=== PATIENT | female | born 1945 | race Caucasian/White ===

== ENCOUNTER 2021-05-22 10:12 | Outpatient (REF) | payer MEDICARE, SELFPAY ==
[2021-05-22 12:54] LABS: Hematocrit 47.3 % (37-47); Hemoglobin 15.4 g/dl (12.0-16.0); Mean Corpuscular HGB Conc 32.6 g/dl (31.0-35.0); Mean Corpuscular Hemoglobin 29.8 pg (27.0-33.0); Mean Corpuscular Volume 91.5 fL (80-98); Platelet Count 330 X10*3/uL (160-400); Red Blood Count 5.17 X10*6/uL (4.20-5.50); Red Cell Distribution Width 12.4 % (11.0-16.0); White Blood Count 8.3 X10*3/uL (4.8-10.8)
[2021-05-22 13:13] LABS: Alanine Aminotransferase 8 U/L (0-31); Albumin Level 4.6 g/dL (3.5-5.0); Alkaline Phosphatase 54 U/L (39-117); Anion Gap 17 (12-20); Aspartate Amino Transferase 15 U/L (5-31); Bilirubin Total 0.5 mg/dL (0.0-1.0); Blood Urea Nitrogen 13 mg/dL (9-16); Calcium 10.3 mg/dL (8.4-10.2); Carbon Dioxide 27 mmol/L (22-29); Chloride 100 mmol/L (96-108); Cholesterol 260 mg/dL; Estimated Glomerular Filt Rate 43; Glucose Fasting 101 mg/dL (60-99); HDL Cholesterol 60 mg/dL; LDL Cholesterol Calculated 168 mg/dl; Potassium 5.8 mmol/L (3.3-5.1); Sodium 138 mmol/L (135-145); Total Protein 7.6 g/dL (6.5-8.0); Triglycerides 163 mg/dL
[2021-05-22 13:17] LABS: Valproate 57.2 mcg/mL (50.0-100.0)
== END 2021-05-22 10:13 | disposition home or self-care (01) ==
LOC: HO.MANLDS 10:12
PROVIDERS: PCP Internal Medicine; Visit Provider Internal Medicine
DX: I10 Essential (primary) hypertension (principal); R56.9 Unspecified convulsions; Z79.899 Other long term (current) drug therapy
CPT/HCPCS: 36415; 80053; 80061; 80164; 85027

== ENCOUNTER 2024-05-02 10:18 | Outpatient (REF) | payer MEDICARE, SELFPAY ==
[2024-05-02 13:14] LABS: MANUAL DIFF FLAG NO
[2024-05-02 13:24] LABS: Basophils Percent Auto 0.6 % (0-2); Eosinophils Absolute Auto 0.1 X10*3/uL (0.0-0.4); Eosinophils Percent Auto 0.9 % (0-4); Hematocrit 42.8 % (37.0-47.0); Hemoglobin 14.3 g/dl (12.0-16.0); Imm Gran Abs Auto 0.03 X10*3/uL (0.00-0.03); Imm Gran Pct Auto 0.5 % (0.0-0.4); Lymphocytes Absolute Auto 1.9 X10*3/uL (1.2-4.9); Lymphocytes Percent Auto 28.5 % (20-40); Mean Corpuscular HGB Conc 33.4 g/dl (31.0-35.0); Mean Corpuscular Volume 89.9 fL (80.0-98.0); Mean Platelet Volume 10.7 fL (9.4-12.3); Monocytes Absolute Auto 0.7 X10*3/uL (0.1-1.2); Monocytes Percent Auto 11.2 % (2-11); Neutrophils Absolute Auto 3.8 x10*3/uL (2.0-8.3); Neutrophils Percent Auto 58.3 % (45-73); Platelet Count 266 X10*3/uL (160-400); Red Blood Count 4.76 X10*6/uL (4.20-5.50); Red Cell Distribution Width 12.4 % (11.0-16.0); White Blood Count 6.6 X10*3/uL (4.8-10.8)
[2024-05-02 13:44] LABS: Alanine Aminotransferase 8 U/L (0-31); Albumin Level 4.2 g/dL (3.5-5.0); Alkaline Phosphatase 46 U/L (39-117); Anion Gap 12 (12-20); Aspartate Amino Transferase 19 U/L (5-31); Bilirubin Total 0.4 mg/dL (0.0-1.0); Blood Urea Nitrogen 16 mg/dL (9-16); Calcium 10.1 mg/dL (8.4-10.2); Carbon Dioxide 30 mmol/L (22-29); Chloride 100 mmol/L (96-108); Cholesterol 204 mg/dL (<200); Estimated Glomerular Filt Rate 43; Glucose Random 77 mg/dL (60-115); HDL Cholesterol 55 mg/dL (>40); LDL Cholesterol Calculated 121 mg/dL (<100); Potassium 5.1 mmol/L (3.3-5.1); Sodium 137 mmol/L (135-145); Total Protein 7.3 g/dL (6.5-8.0); Triglycerides 144 mg/dL (<150)
[2024-05-02 14:05] LABS: Vitamin D 25-OH Total 65.5 ng/mL (>30)
== END 2024-05-02 10:19 | disposition home or self-care (01) ==
LOC: HO.MANLDS 10:18
PROVIDERS: Visit Provider Internal Medicine
DX: I10 Essential (primary) hypertension (principal)
CPT/HCPCS: 36415; 80053; 80061; 82306; 85025

== ENCOUNTER 2024-11-14 07:28 | Outpatient (REF) | payer MEDICARE, SELFPAY ==
--- OUTSIDE RECORDS SUMMARY | 2024-11-14 07:31 | XMS_ITS | Data Portability ---
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) [facility] MODERATE MUST MEET 2 OUT OF 3 ELEMENTS: PROBLEMS, DATA OR RISK ELEMENT 1: PROBLEMS ADDRESSED 1 OR MORE CHRONIC ILLNESS WITH EXACERBATION OR 2 OR MORE STABLE CHRONIC ILLNESSES OR 1 UNDIAGNOSED NEW PROBLEM OR 1 ACUTE ILLNESS W/SYMPTOMS OR 1 ACUTE COMPLICATED INJURY ELEMENT 2: DATA MUST MEET 1 OF 3 CATEGORIES CATEGORY 1: REVIEW OF PRIOR EXTERNAL NOTES, REVIEW OF RESULTS, ORDERING OF EACH TEST, ASSESSMENT REQUIRING INDEPENDENT HISTORIAN OR CATEGORY 2: INDEPENDENT INTERPRETATION OF TESTS BY ANOTHER PHYSICIAN OR SPECIALIST OR CATEGORY 3: DISCUSSION OF MGT OR TEST INTERPRETATION W/EXTERNAL PHYSICIAN OR SPECIALIST ELEMENT 3: RISK RISK OF COMPLICATIONS AND/OR MORBIDITY OR MORTALITY OF PATIENT MANAGEMENT PROVIDER MUST THOROUGHLY DOCUMENT EACH ELEMENT THAT IS COVERED Not available 04/28/2023 15:41:10 11/09/2023 11/09/2023 [id number] [place] [id number] (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 TENDER) [facility]DM MODERATE MUST MEET 2 OUT OF 3 ELEMENTS: PROBLEMS, DATA OR RISK ELEMENT 1: PROBLEMS ADDRESSED 1 OR MORE CHRONIC ILLNESS WITH EXACERBATION OR 2 OR MORE STABLE CHRONIC ILLNESSES OR 1 UNDIAGNOSED NEW PROBLEM OR 1 ACUTE ILLNESS W/SYMPTOMS OR 1 ACUTE COMPLICATED INJURY ELEMENT 2: DATA MUST MEET 1 OF 3 CATEGORIES CATEGORY 1: REVIEW OF PRIOR EXTERNAL NOTES, REVIEW OF RESULTS, ORDERING OF EACH TEST, ASSESSMENT REQUIRING INDEPENDENT HISTORIAN OR CATEGORY 2: INDEPENDENT INTERPRETATION OF TESTS BY ANOTHER PHYSICIAN OR SPECIALIST OR CATEGORY 3: DISCUSSION OF MGT OR TEST INTERPRETATION W/EXTERNAL PHYSICIAN OR SPECIALIST ELEMENT 3: RISK RISK OF COMPLICATIONS AND/OR MORBIDITY OR MORTALITY OF PATIENT MANAGEMENT PROVIDER MUST THOROUGHLY DOCUMENT EACH ELEMENT THAT IS COVERED Not available 11/09/2023 11:03:30 05/02/2024 05/02/2024 [id number] [place] [id number] (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 TENDER) MDM MODERATE MUST MEET 2 OUT OF 3 ELEMENTS: PROBLEMS, DATA OR RISK ELEMENT 1: PROBLEMS ADDRESSED 1 OR MORE CHRONIC ILLNESS WITH EXACERBATION OR 2 OR MORE STABLE CHRONIC ILLNESSES OR 1 UNDIAGNOSED NEW PROBLEM OR 1 ACUTE ILLNESS W/SYMPTOMS OR 1 ACUTE COMPLICATED INJURY ELEMENT 2: DATA MUST MEET 1 OF 3 CATEGORIES CATEGORY 1: REVIEW OF PRIOR EXTERNAL NOTES, REVIEW OF RESULTS, ORDERING OF EACH TEST, ASSESSMENT REQUIRING INDEPENDENT HISTORIAN OR CATEGORY 2: INDEPENDENT INTERPRETATION OF TESTS BY ANOTHER PHYSICIAN OR SPECIALIST OR CATEGORY 3: DISCUSSION OF MGT OR TEST INTERPRETATION W/EXTERNAL PHYSICIAN OR SPECIALIST ELEMENT 3: RISK RISK OF COMPLICATIONS AND/OR MORBIDITY OR MORTALITY OF PATIENT MANAGEMENT PROVIDER MUST THOROUGHLY DOCUMENT EACH ELEMENT THAT IS COVERED Not available 05/02/2024 10:05:37 11/11/2024 11/11/2024 [id number] [place] [id number] (CIRCULATION TENDER) MDM HIGH MUST MEET 2 OUT OF 3 ELEMENTS: PROBLEMS, DATA OR RISK ELEMENT 1: PROBLEMS 1 OR MORE CHRONIC ILLNESS W/SEVERE EXACERBATION, PROGRESSION MAY REQUIRE HOSPITAL LEVEL CARE OR 1 ACUTE OR CHRONIC ILLNESS OR INJURY THAT POSES A THREAT TO LIFE OR BODILY FUNCTION ELEMENT 2: DATA: MUST MEET 2 OF 3 CATEGORIES CATEGORY 1 REVIEW OF PRIOR EXTERNAL NOTES REVIEW OF THE RESULTS ORDERING OF EACH TEST ASSESSMENT REQUIRING INDEPENDENT HISTORIAN(S) CATEGORY 2: INDEPENDENT INTERPRETATION OF TESTS BY ANOTHER PROVIDER/SPECIALI ST CATEGORY 3: DISCUSSION OF MGT OR TEST INTERPRETATION W/EXTERNAL PHYSICIAN/SPECIAL IST ELEMENT 3: RISK HIGH RISK OF MORBIDITY FROM ADDITIONAL DIAGNOSTIC TESTING OR TREATMENT PROVIDER MUST THOROUGHLY DOCUMENT EACH ELEMENT THAT IS COVERED The patient presented to their appointment today for multiple concerns requiring moderate to high-level decision making and took over 40-45 minutes for an adequate and appropriate history, exam, assessment and treatment plan. This appointment was done with an established patient. Not available 11/11/2024 09:14:50 Plan of Treatment Reminders Order Date Submit Date Provider Last Modified By Organization Details Last Modified Time Details Appointments FOLLOW UP 15 2024 09:00A M DR ALMAZAN Not available Not available Not available Lab valproic acid, free + total, serum 2024 025 [facility], [address] [place] [address], [place], [address], 11/11/2024 09:21:34 vitamin D, 25-hydrox y, total, serum 2023 024 [facility], [place], [address], 05/02/2024 10:11:08 CBC 2023 024 [facility], [place], [address], 05/02/2024 10:11:08 CMP, serum or plasma 2023 024 [facility], [place], [address], 05/03/2024 11:18:39 lipid panel, blood 2023 024 [facility], [place], [address], 05/02/2024 10:11:08 CMP, serum or plasma 2023 024 [facility], [place], [address], 11/09/2023 11:07:05 vitamin D, 25-hydrox y, total, serum 2023 024 [facility], [place], [address], 11/09/2023 11:07:05 lipid panel, blood 2023 024 [facility], [place], [address], 11/09/2023 11:07:05 CBC 2023 024 [facility], [place], [address], 11/09/2023 11:07:05 Referral None recorded. Procedures None recorded. Surgeries None recorded. Imaging XR, knee, 3 view - bilateral please 2023 024 [email or web address] 10 [facility], [address] [place] [address], [address], 05/17/2024 11:28:11 XR, lumbosacr al spine, 2 or 3 view 2022 023 DON[facility] Not available 07/21/2023 16:59:26 Medication Orders propranol ol ER 160 mg capsule,2 4 hr,extend ed release 2023 024 [id number], [address] [place], [place], [id number], 11/09/2023 11:06:15 oxycodone -acetamin ophen 5 mg-325 mg tablet 2022 023 [facility] #[id number], [address] [place], [place], [id number], 07/20/2023 12:03:49 prednison e 10 mg tablet 2022 023 [email or web address] [facility][id number], [address], [place], [id number], 11/09/2023 10:41:31 Patient TargetsNo targets recorded. Patient Instructions Encounter Date Encounter Id Patient Instructions Last Modified By Organization Details Last Modified Time 05/02/2024 [id number] learning about mood disorders Not available 05/02/2024 10:09:47 11/11/2024 [id number] learning about mood disorders Not available 11/11/2024 09:20:25 Reason for Referral None Reported. Results Created Date Observation Date Name Description Value Unit Range Abnormal Flag Note LastModifiedBy Organization Detail LastModifiedTime 07/21/20 23 07/21/2023 XR, lumbo sacra l spine , 2 or 3 view No observ ation record ed. [address], [address], 11/09/2023 11:03:52 Result Notes None recorded. Problems Name Problem SNOMED Code Status Onset Date Resolution Date Notes Provider Name and Address Organization Details Recorded Time Hyperten sive disorder 01646186 Active 2017 Not Available [facility] 2 12:34:32 Seizure 46137757 Active 2017 Not Available [facility] 2 12:34:32 Gastric volvulus 52227996 Active 2017 Not Available [facility] 2 12:34:32 History of total hysterec dolly 745656660 Active 2017 Not Available [facility] 2 12:34:32 Low back pain 425205894 Active 2017 Not Available [facility] 2 12:34:31 Tobacco dependen ce syndrome 58767599 Active 2017 Not Available [facility] 2 12:34:32 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 Not Available [facility] 2 12:34:32 Depressi ve disorder 61910803 Active 2020 Not Available [facility] 2 12:34:32 Acute bronchit is 97111155 Active 2022 RAHEEL KELSEY [address] [place], [address], [facility] 3 11:09:11 Cough 65756093 Active 2022 RAHEEL KELSEY [address] [place], [address], [facility] 3 11:09:34 Fever with chills 981314802 Active 2022 RAHEEL KELSEY [address] [place], [address], [facility] 3 11:09:43 Right upper quadrant pain 422654683 Active 2022 RAHEEL KELSEY [address] [place], [address], [facility] 3 10:23:45 Cholelit hiasis without obstruct ion 65508967 Active 2022 RAHEEL KELSEY [address] [place], [address], [facility] 3 13:35:58 Spasm of muscle of lower back 76614475990 787398 Active 2022 Emil Almazan, DO [address] [place] [address], [address], [facility] 3 22:49:59 Degenera tion of lumbar interver tebral disc 64215887 Active 2022 RAHEEL KELSEY [address] [place], [address], [facility] 3 09:00:50 [facility] hyperten deni 40411471 Active 2023 Emil Almazan DO [address] [place] [address], [address], [facility] 4 11:06:50 Pain of bilatera l knee joints 26650625828 4104 Active 2023 Emil Almazan, [address], [address], [facility] 4 10:02:57 Problem Notes None recorded. Procedures Surgical History Date Name Laterality Status Provider Name and Address Organization Details Recorded Time 7 Colonoscopy completed Opal Chavez [facility] 01/12/2019 09:48:09 Imaging Results Imaging Date Name Status LastModified by Organiz ation Details LastModified Time 07/21/2023 XR, lumbosacral spine, 2 or 3 view completed [facility] [address] [facility], [place], [address], 11/09/2023 11:03:52 Procedure Notes None recorded. Medical Equipment None Reported. Allergies Allergen ID Allergen Name Allergen Category Reaction Reaction Severity Criticality Documentation Date Start Date Code Code System Note Provider Name and Address Organization Details Recorded Time 2454 Substance with sulfonami de structure and antibacte rial mechanism of action (substanc e) medicatio n Not available Not available Not available 07/09/2018 19149 8003 SNOMED Opal patton [place] [facility] 8 08:44:17 Medications Name Sig Start Date Stop Date Status Note LastModified by Organization Details LastModified Time cyclobenzap rine 10 mg tablet Take 1 tablet 3 times a day by oral route for 10 days. 07/18 completed Not Available Not Available Not Available prednisone 10 mg tablet 40 mg x 2 days30 mg x 2 days20 mg x 2 days10 mg x 2 days 11/09 completed Not Available Not Available Not Available doxycycline hyclate 100 mg capsule TAKE 1 CAPSULE BY MOUTH TWICE DAILY FOR 10 DAYS 12/22 completed Not Available Not Available Not Available propranolol ER 160 mg capsule,24 hr,extended release TAKE 1 CAPSULE BY MOUTH DAILY active Not Available Not Available No t Available divalproex 250 mg tablet,nilda yed release TAKE 1 TABLET BY MOUTH TWICE DAILY FOR 7 DAYS 11/09 completed Not Available Not Available Not Available tizanidine 4 mg tablet TAKE 1 TABLET BY MOUTH EVERY 6 HOURS FOR 10 DAYS 11/09 completed Not Available Not Available Not Available benzonatate 200 mg capsule TAKE 1 CAPSULE BY MOUTH THREE TIMES DAILY FOR 14 DAYS NEEDED 12/22 completed Not Available Not Available Not Available meloxicam 15 mg tablet TAKE 1 TABLET BY MOUTH EVERY DAY NEEDED 04/28 completed Not Available Not Available Not Available fluorouraci l 5 % topical cream active Not Available Not Available Not Available Zithromax Z-Jono 250 mg tablet TAKE 2 TABLETS (500 MG) BY ORAL ROUTE ONCE DAILY FOR 1 DAY THEN 1 TABLET (250 MG) BY ORAL ROUTE ONCE DAILY FOR 4 DAYS 05/04 completed Not Available Not Available Not Available tramadol 50 mg tablet TAKE 1 TO 2 TABLETS BY MOUTH EVERY 6 TO 8 HOURS NEEDED active Not Available Not Available No t Available oxycodone-a cetaminophe n 5 mg-325 mg tablet Take 1 tablet every 6 hours by oral route as needed for 7 days. 07/20 completed Not Available Not Available Not Available Aspir-81 mg tablet,nilda yed release Take 1 tablet every day by oral route. 05/28 completed Not Available Not Available Not Available methylpredn isolone 4 mg tablets in a dose pack FOLLOW PACKAGE DIRECTION S 12/22 completed Not Available Not Available Not Available ondansetron 4 mg disintegrat ing tablet TAKE 1 TABLET BY MOUTH EVERY 8 HOURS NEEDED FOR NAUSEA active Not Available Not Available No t Available sertraline 50 mg tablet TAKE 1 TABLET BY MOUTH EVERY DAY active Not Available Not Available No t Available doxycycline hyclate 100 mg tablet TAKE 1 TABLET BY MOUTH TWICE DAILY FOR 10 DAYS 11/22 completed Not Available Not Available Not Available oxycodone 5 mg tablet TAKE 1 TABLET BY MOUTH EVERY 4 HOURS NEEDED FOR PAIN DIRECTED. (DO NOT DRIVE WHILE ON THIS MEDICATIO N) 11/22 completed Not Available Not Available Not Available Pneumovax-2 3 25 mcg/0.5 mL injection syringe 11/19 completed Not Available Not Available Not Available divalproex ER 250 mg tablet,exte nded release 24 hr TAKE 1 TABLET BY MOUTH TWICE DAILY active Not Available Not Available No t Available Prevnar 13 (PF) 0.5 mL intramuscul ar syringe 01/12 completed Not Available Not Available Not Available Shingrix (PF) 50 mcg/0.5 mL intramuscul ar suspension, kit 11/19 completed Not Available Not Available Not Available Fluzone High-Dose 2019-20 (PF) 180 mcg/0.5 mL intramuscul ar syringe 11/19 completed Not Available Not Available Not Available Fluad Quad 6028-5833(6 5yr up)(PF) 60 mcg (15 mcg x 4)/0.5mL IM syringe 11/19 completed Not Available Not Available Not Available Vitals Date Recorded Body height Body mass index (BMI) Body weight Heart rate Oxygen saturation Oxygen saturation in Arterial blood by Pulse oximetry Systolic blood pressure Diastolic blood pressure Provider Name and Address Organization Details Last Updated DateTime 3 164.47 cm 25.5 kg/m2 65778.0 4 g 63 /min 100 % 100 % 150 mm[Hg] 78 mm[Hg] Aster [facility] 3 15:24:46 Date Recorded Body height Body mass index (BMI) Body weight Heart rate Oxygen saturation Oxygen saturation in Arterial blood by Pulse oximetry Systolic blood pressure Diastolic blood pressure Provider Name and Address Organization Details Last Updated DateTime 3 164.47 cm 25.5 kg/m2 80780.0 4 g 65 /min 99 % 99 % 150 mm[Hg] 78 mm[Hg] Aster Timmonsmond [facility] 3 10:21:41 Date Recorded Body height Body mass index (BMI) Body weight Heart rate Oxygen saturation Oxygen saturation in Arterial blood by Pulse oximetry Systolic blood pressure Diastolic blood pressure Provider Name and Address Organization Details Last Updated DateTime 4 164.47 cm 25.3 kg/m2 93631.0 1 g 69 /min 99 % 99 % 182 mm[Hg] 82 mm[Hg] Emil Almazan, DO [address] [place], [address], [facility] 4 10:39:20 Date Recorded Body height Body mass index (BMI) Body weight Heart rate Oxygen saturation Oxygen saturation in Arterial blood by Pulse oximetry Systolic blood pressure Diastolic blood pressure Provider Name and Address Organization Details Last Updated DateTime 4 163.83 cm 24.1 kg/m2 22616.9 9 g 72 /min 98 % 98 % 140 mm[Hg] 80 mm[Hg] Aashish Cook [facility] 4 09:56:13 Date Recorded Body height Body mass index (BMI) Body weight Heart rate Oxygen saturation Oxygen saturation in Arterial blood by Pulse oximetry Systolic blood pressure Diastolic blood pressure Provider Name and Address Organization Details Last Updated DateTime 5 163.83 cm 26 kg/m2 66919.2 2 g 71 /min 99 % 99 % 118 mm[Hg] 70 mm[Hg] Aashish Cook [facility] 5 09:04:15 Social History Question Answer Notes LastModified by Organizat ion Details LastModified Time Tobacco Smoking Status Former Smoker Not Available [facility] 07/17/2020 03:36:23 What Was The Date Of Your Most Recent Tobacco Screening? 11/11/2024 [email or web address] Information not available 11/11/2024 Do You Or Have You Ever Used Any Other Forms Of Tobacco Or Nicotine? No [email or web address] Information not available 12/22/2022 Sex: Unknown Functional Status None recorded. Mental Status None recorded. Family History Nothing Reported. Medical History No medical history recorded. Gynecological HistoryNo gynecological history recorded. Obstetrics History GPAL:G 0 P 0 0 0 0 Immunizations Vaccine Type Date Status Note Provider Nam e and Address Organization Details Recorded Time COVID-19, mRNA, LNP-S, PF, 30 mcg/0.3 mL dose 1 completed Not Available [facility] 07/03/2022 12:34:32 COVID-19, mRNA, LNP-S, PF, 30 mcg/0.3 mL dose 1 completed Not Available [facility] 07/03/2022 12:34:32 Influenza, split virus, quadrivalent, preservative 1 completed Not Available [facility] 07/03/2022 12:34:32 COVID-19, mRNA, LNP-S, PF, 30 mcg/0.3 mL dose 1 completed Not Available [facility] 07/03/2022 12:34:32 Influenza, split virus, quadrivalent, preservative 8 completed Not Available [facility] 07/03/2022 12:34:32 COVID-19, mRNA, LNP-S, PF, 30 mcg/0.3 mL dose 2 completed Not Available [facility] 07/03/2022 12:34:32 COVID-19, mRNA, LNP-S, PF, 30 mcg/0.3 mL dose 2 completed Not Available [facility] 07/03/2022 12:34:32 Pneumococcal conjugate PCV 13 8 completed Not Available [facility] 07/03/2022 12:34:32 Influenza, split virus, quadrivalent, preservative 9 completed Not Available [facility] 07/03/2022 12:34:32 zoster live 9 completed Not Available [facility] 07/03/2022 12:34:32 pneumococcal polysaccharide PPV23 9 completed Not Available [facility] 07/03/2022 12:34:32 zoster, unspecified formulation 0 completed Not Available [facility] 07/03/2022 12:34:32 Influenza, split virus, quadrivalent, preservative 0 completed Not Available [facility] 07/03/2022 12:34:32 Influenza, split virus, quadrivalent, preservative 0 completed Not Available [facility] 07/03/2022 12:34:32 Past Encounters Encounter ID Performer Location Encounter Start Date Encounter Closed Date Diagnosis/Indication Diagnosis SNOMED-CT Code Diagnosis ICD10 Code Diagnosis Note [id number] Emil Almazan [facility] [address] [facility] [address] 07/09/2018 09:15:02 07/09/2018 10:00:21 Hypertensive disorder 95424319 I10 Seizure 10099450 R56.9 Adult [facility] th examination 831743005 Z00.00 [id number] Emil Almazan [facility] [address] [facility] [address] 01/12/2019 08:48:17 01/12/2019 09:20:36 Hypertensive disorder 32443945 I10 stable and is fairly good and her home bps are ok will need to check bps and call me if they are elevated to adjust med Seizure 80522560 R56.9 asymptomat ic over the last 6 mo Low back pain 663157723 M54.5 still a problem [id number] Emil Almazan [facility] [address] [facility], [place] [address] 07/13/2019 09:16:07 07/13/2019 10:27:16 Seizure 20327279 R56.9 asymptomat ic over the last 12 mo must get lab levels of drug Hypertensive disorder 38 165843 I10 stable and is fairly good and her home bps are ok will need to check bps and call me if they are elevated to adjust med [id number] RAHEEL KELSEY [facility] [address] [facility] [address] 11/07/2019 14:20:40 11/07/2019 15:11:42 Cough 20454158 R05 pt has had cough for three days having difficulty sleeping due to coughing fits no other symptoms besides a mildly sore throat Hypertensive disorder 38 381795 I10 BP elevated today at 150/82 recheck at next appt Atypical pneumonia 63523 6009 J18.9 smoking history for 20 plus years, non-smoker for the last 30 years has had cough for three days advised to call back if symptoms worsen or if finished with abx and symptoms persist [id number] Emil Almazan DO [facility] [address] [facility],[place] [address] 05/04/2020 11:48:41 05/04/2020 13:28:42 Hypertensive disorder 59722777 I10 stable and is fairly good and her home bps are ok will need to check bps and call me if they are elevated to adjust med will chk fbw in jun Seizure 03469566 R56.9 asymptomat ic over the last 12 [place] [id number] Emil Almazan DO [facility] [address] [facility] [address] 11/19/2020 09:44:23 11/19/2020 11:55:03 Hypertensive disorder 11590633 I10 stable and is fairly good and her home bps are ok will need to check bps and call me if they are elevated to adjust med will need some lab Seizure 26152016 R56.9 asymptomat ic over the last 12 mo will chk lab Depressive disorder 3548 9007 F32.9 doing ok with sertraline Trigger fi nger of right hand [id number] 5131469 M65.30 gettting much worse and is affecting her ADLs [id number] Emil Almazan DO [facility] [address] [facility],[place] [address] 05/27/2021 09:54:06 05/28/2021 16:40:33 Seizure 04568645 R56.9 asymptomat ic over the last 12 molevel is good no chnage in med dose Hypertensive disorder 38 826149 I10 stable and is fairly good and her home bps are ok will need to check bps and call me if they are elevated to adjust medlab is reviewed [id number] Emil Almazan [facility] [address] [facility],[place] [address] 11/22/2021 09:06:58 11/25/2021 15:12:47 Hypertensive disorder 44108884 I10 stable and is fairly good and her home bps are ok will need to check bps and call me if they are elevated to adjust medlab is reviewed Seizure 26962744 R56.9 asymptomat ic over the last 12 molevel is good no chnage in med dose Depressive disorder 3548 9007 F32.9 doing ok with sertraline Screening mammography 24 572608 Z12.31 [id number] Emil Almazan DO [facility] [address] [facility] [address] 05/28/2022 09:06:35 05/28/2022 09:52:03 Hypertensive disorder 95504371 I10 stable and is fairly good and her home bps are ok will need to check bps and call me if they are elevated to adjust medlab is reviewed Depressive disorder 3545 9007 F32.9 doing ok with sertraline [id number] RAHEEL KELSEY [facility] [address] [facility],[place] [address] 09/16/2022 09:38:56 09/16/2022 13:55:10 Acute bronchitis 90164599 J20.8 start on doxy for the next ten daysstart on medrol for fever, cough, chest tightness Cough 12742369 R05.1 can use PRN Fever with chills 548523 006 R50.81 use APAP and ibu interchang eably PRN for fever controlcon tinue to increase fluids [id number] [facility] [address] [facility] [address] 12/22/2022 09:56:29 12/22/2022 13:30:07 Seizure 53421459 R56.00 has fu with neuro tomorrow Right uppe r quadrant pain 423374925 R10.11 will set up for STAT US Low back pain 584100623 M54.59 needs refill of medication [id number] Emil Almazan DO [facility] [address] [facility] [address] 04/28/2023 15:13:29 04/28/2023 16:11:52 Hypertensive disorder 25222819 I10 stable and is fairly good and her home bps are ok will need to check bps and call me if they are elevated to adjust medlab is reviewed Low back pain 948399640 M54.59 using meloxicam had a recent bout of pain that was bad but most of the time the pain is intermitte ntuse the tramadol as needed Depressive disorder 2661 6203 F32.9 doing ok with sertraline [id number] JOSEPH IBARRA [facility] [address] [facility], [email or web address] [address] 07/20/2023 10:11:52 07/20/2023 11:26:36 Low back pain [id number] M54.59 needs refill of medication [id number] Emil Almazan DO [facility] Internal [facility] [address] [facility], [place] [address] 11/09/2023 10:34:37 11/09/2023 15:56:33 Degeneration of lumbar intervertebral disc [id number] M51.36 still bothers on occasion Hypertensive disorder 38 [id number] I10 stable and is fairly good and her home bps are ok will need to check bps and call me if they are elevated to adjust medlab is reviewed Essential hypertension [id number] I10 stable and doing well [id number] Emil Almazan DO [facility] Internal [facility] [address] [facility], [place] [address] 05/02/2024 09:49:35 05/02/2024 10:24:32 Degeneration of lumbar intervertebral disc [id number] M51.36 still bothers on occasion Essential hypertension [id number] I10 stable and doing well Depressive disorder 0374 6514 F32.9 doing ok with sertraline Pain of bi lateral knee joints [id number] M25.561 M25.562 [id number] Emil Almazan DO [facility] Internal Medicine [address] [facility], [place] [address] 11/11/2024 08:44:02 11/11/2024 09:53:16 Cholelithiasis without obstruction [id number] K80.20 seems that she had passed a stone given evidence of inflammati on and bile duct dilation currently and since has been asymptomat ic Depressive disorder 7779 4751 F32.9 doing ok with sertraline Essential hypertension 72571572 I10 stable and doing well Seizure [id number] R56.00 given apparent episode we will chk a depak levellevel is good no change in med dose Health Concerns Section Related Observation LastModified by Organization Detai ls LastModified Time None Recorded Concern Status LastModified by Organization Details LastModified Time None Recorded Advance Directives Directive None Recorded Payers Encounter Date Sequence Insurance Name Policy Number Policy Le Covered Member ID Le Member ID Guarantor Name 04/28/2023 1 [facility] BLUE (MEDICARE REPLACEMENT PPO) [id number] Maribel Quevedo [id number] Maribel Quevedo 07/20/2023 1 [facility] BLUE (MEDICARE REPLACEMENT PPO) [id number] Maribel Quevedo [id number] Maribel Quevedo 11/09/2023 1 [facility] (MEDICARE REPLACEMENT PPO) [id number] Maribel Quevedo [id number] Maribel Quevedo 05/02/2024 1 [facility] (MEDICARE REPLACEMENT PPO) [id number] Maribel Quevedo [id number] Maribel Quevedo 11/11/2024 1 [facility]: [place] BLUE (MEDICARE REPLACEMENT PPO) [id number] Maribel Quevedo [id number] Maribel Quevedo Notes Date Note Type Note Provider Name and Address Organization Details Recorded Time 3 text/htm l Care Management - HypertensionReported bypatient.Self Care:not under emotional stress Severity:symptoms are improving; does not interfere with daily activities Associated Symptoms:no dizziness; no lightheadedness; no chest pain; no shortness of breath; no palpitations; no edema; no calf muscle cramps; no blurred vision; no confusion; no headaches; no fatigue here for rechkfeels wellno cp no sobstaying active and doesnt sit around Emil Almazan, DO [address] [facility], [place], [address], [facility] 04/28/2023 15:43:22 3 text/htm l c/o low back pain x 3 days ongoing low back pain since orse in the last three daysno radiationpain with flexion of the spine will adjust medications for patient for pain controlwill also set up with XR for the lumbar spine to start since the pain has progressed can use percocet with tramadol for breakthrough pain onlywill start on pred can use the tizanidine if needed RAHEEL KELSEY [address] [place], [address], [facility] Internal Medicine 07/20/2023 10:33:02 4 text/htm l Care Management - HypertensionReported bypatient.Self Care:not under emotional stress Severity:symptoms are improving; does not interfere with daily activities Associated Symptoms:no dizziness; no lightheadedness; no chest pain; no shortness of breath; no palpitations; no edema; no calf muscle cramps; no blurred vision; no confusion; no headaches; no fatigue here for rechk and relates she had a URI a month ago and is feeling better but is still sick ; Emil Almazan DO [address] [place], [address], [facility] Internal Medicine 11/09/2023 11:08:19 4 text/htm l doing well overall except noted onset of discomfort in both knees recentlyrelates has been walking dogs and notices the pain gets significantly worseno pain down calves etcstates otherwise is feeling good'low back is still intermittent in discomfort depends on what she had doneno cp no sobbowels and bladder oksleep is ok Emil Almazan DO [address] [place], [address], [facility] Internal Medicine 05/02/2024 10:11:11 5 text/htm l relates had an episode of LOC while [place] has had sz in past and this was similar event felt fine and then was awoken by who came looking for her she doesnt remember waking up with himstates thisis how he r sz occurhasnt had one in yearshas been good taking divalproex daily also had an episode of cp and was seen in ER relates had w/u and has notednon cardiac although the ct scan showed GB ds and some inflammation Emil Almazan, DO [address] [facility], [place], [address], [facility] Internal Medicine 11/11/2024 09:21:39 OBGyn Episode No OBEpisode recorded.
[2024-11-14 13:45] LABS: Valproate 34.3 mcg/mL (50.0-100.0)
== END 2024-11-14 07:29 | disposition home or self-care (01) ==
LOC: HO.MANLDS 07:28
PROVIDERS: Visit Provider Internal Medicine
DX: R56.00 Simple febrile convulsions (principal)
CPT/HCPCS: 36415; 80164

== ENCOUNTER 2025-05-03 09:32 | Outpatient (REF) | payer MEDICARE, SELFPAY ==
--- OUTSIDE RECORDS SUMMARY | 2025-05-03 10:19 | XMS_ITS | Encounter Summary ---
Author Organization [facility] Address [address] [place] [address] Phone Care Team Providers Care Crm Architect Name Role Phone Emil Villalpando DO Primary Care Provider [phone] Encounter Details Date Type Department Care Team (Late st Contact Info) Description 03/13/2023 Procedure Pass [facility], Ct Scan - [address] [address] Social History Tobacco Use Types Packs/Day Years Used Date Smoking Tobacco: Former Cigarettes Smokeless Tobacco: Never Education Answer Date Recorded Are you interested in more education? Not on nasim e 01/09/2023 Are you concerned about learning? Not on file 01/09/2023 No 01/09/2023 No 01/09/2023 Digital Access Answer Date Recorded No 02/07/2023 No 02/07/2023 Reliable internet access at home? Not on file 02/07/2023 Device with a working camera? Not on file Comments No Sex and Gender Information Value Date Recorded Sex Assigned at Female 10/20/2024 10:32 PM EST Legal Sex Female 10:10 PM EDT Gender Identity Female 10/20/2024 10:32 PM EST Sexual Orientation Straight 10/20/2024 10 :32 PM EST documented as of this encounter Plan of Treatment Not on file documented as of this encounter Visit Diagnoses Not on filedocumented in this encounter Additional Health Concerns Infection Onset Date Last Indicated Resolved Time CoV-Risk 10/20/2024 10/20/2024 10/31/2024 1:22 AM EST documented as of this encounter Care Teams Crm Architect Relationship Specialty Start Date End Date Emil Villalpando DO [address] [place] [address] [email or web address] PCP - General 06/29/17 documented as of this encounter Additional Source Comments The information contained in this document represents components of the legal health record. It is not the complete legal health record.[facility]
[2025-05-03 17:14] LABS: MANUAL DIFF FLAG NO
[2025-05-03 17:41] LABS: Hematocrit 40.8 % (37.0-47.0); Hemoglobin 13.4 g/dl (12.0-16.0); Imm Gran Abs Auto 0.03 X10*3/uL (0.00-0.03); Imm Gran Pct Auto 0.5 % (0.0-0.4); Lymphocytes Absolute Auto 1.3 X10*3/uL (1.2-4.9); Mean Corpuscular HGB Conc 32.8 g/dl (31.0-35.0); Mean Corpuscular Hemoglobin 30.2 pg (27.0-33.0); Mean Corpuscular Volume 91.9 fL (80.0-98.0); NRBC Abs Auto 0.000 X10*3/uL (0.0-0.012); NRBC Pct Auto 0.0 /100WBC (0.0-0.2); Platelet Count 202 X10*3/uL (160-400); Red Blood Count 4.44 X10*6/uL (4.20-5.50); White Blood Count 6.5 X10*3/uL (4.8-10.8)
[2025-05-03 18:10] LABS: Alanine Aminotransferase 18 U/L (0-31); Albumin Level 4.3 g/dL (3.5-5.0); Alkaline Phosphatase 49 U/L (39-117); Anion Gap 13 (12-20); Aspartate Amino Transferase 35 U/L (5-31); Blood Urea Nitrogen 14 mg/dL (9-16); Calcium 9.3 mg/dL (8.4-10.2); Carbon Dioxide 28 mmol/L (22-29); Chloride 100 mmol/L (96-108); Estimated Glomerular Filt Rate 45; Potassium 5.0 mmol/L (3.3-5.1); Sodium 136 mmol/L (135-145); Total Protein 7.4 g/dL (6.5-8.0)
== END 2025-05-03 09:33 | disposition home or self-care (01) ==
LOC: HO.MANLDS 09:32
PROVIDERS: Visit Provider Internal Medicine
DX: R56.00 Simple febrile convulsions (principal); I10 Essential (primary) hypertension
CPT/HCPCS: 36415; 80053; 80164; 84443; 85025

== ENCOUNTER 2025-07-14 10:46 | Emergency (ER) | payer MEDICARE, SELFPAY ==
--- OUTSIDE RECORDS SUMMARY | 2025-07-10 20:04 | XMS_ITS | Encounter Summary ---
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 Name Role Phone Emil Villalpando Primary Care Provider [phone] Reason for Visit * Reason Comments Dysuria Fall Hand Pain Encounter Details Date Type Department Care Team ([facility] Contact Info) Description 07/10/2025 8:04 PM EDT - 07/10/2025 10:02 PM EDT Emergency [facility] [address] [place] [address] Discharge Disposition: Home or Self Care Social History Tobacco Use Types Packs/Day Years Used Date Smoking Tobacco: Former Cigarettes Q uit: 1975 Smokeless Tobacco: Never Tobacco Cessation:Counseling Given: Not Answered Alcohol Use Standard Drinks/Week Comments Yes 0 (1 standard drink = 0.6 oz pur e alcohol) social Education Answer Date Recorded Are you interested in more education? Not on nasim e 01/09/2023 Are you concerned about learning? Not on file 01/09/2023 No 01/09/2023 No 01/09/2023 Food Answer Date Recorded Within the past 6 months we worried whether our food would run out before we got money to buy more. Never True 07/10/2025 Within the past 6 months the food we bought just didn't last and we didn't have enough money to get more. Never True Residential Stability Answer Date Recor ded What is your housing situation today? I have cliff sing 07/10/2025 How many times have you move d in the past 12 months? Zero (I did not move) 07/10/2025 Paying for Meds Answer Date Recorded Do you have trouble paying for medicines? No 07/10/2025 Paying Utility Bills Answer Date Record ed Do you have trouble paying your heating or elect ricity bill? No 07/10/2025 Transportation Answer Date Recorded Has the lack of transportati on kept you from medical appointments or from getting medications? No 07/10/2025 Digital Access Answer Date Recorded No 07/10/2025 Yes 07/10/2025 Do you have reliable internet access at home? Ye s 07/10/2025 Do you have a device (e.g., phone, tablet, computer) with a working camera? Yes 07/10/2025 Intimate Partner Violence Answer Date R ecorded Are you denied basic needs s uch as food, clothing, or medical care? Deferred 07/10/2025 In the past 12 months have y ou been in a relationship with a person who hurts, threatens, or tries to control you? Deferred 07/10/2025 Are you denied basic needs s uch as food, clothing, or medical care? Deferred 07/10/2025 In the past 12 months have y ou been in a relationship with a person who hurts, threatens, or tries to control you? Deferred 07/10/2025 Comments No Sex and Gender Information Value Date Recorded Sex Assigned at Female 10/20/2024 10:32 PM EST Legal Sex Female 10:10 PM EDT Gender Identity Female 10/20/2024 10:32 PM EST Sexual Orientation Straight 10/20/2024 10 :32 PM EST documented as of this encounter Last Filed Vital Signs Vital Sign Reading Time Taken Comments Blood Pressure 135/51 07/10/2025 9:58 PM EDT Pulse 71 07/10/2025 9:58 PM EDT Temperature 35.9 C (96.6 F) 07/10/2025 9:58 PM EDT Respiratory Rate 16 07/10/2025 9:58 PM EDT Oxygen Saturation 99% 07/10/2025 9:58 PM EDT Inhaled Oxygen Concentration - - Weight 65.8 kg (145 lb 1 oz) 07/10/2025 9:58 PM EDT Height 165.1 cm (5' 5 ) 07/10/2025 9:58 PM EDT Body Mass Index 24.14 07/10/2025 9:58 PM EDT documented in this encounter Functional Status * Calculated C-SSRS Risk Score (Lifetime/Recent) Answer Date of Assessment Author No Risk Indicated 07/10/2025 10:00 PM EDT Zuleyma Martell RN * [place] Suicide Severity Rating Scale (Screener/Recent Self-Report) Question Answer Date of Assessment Author 1. Wish to be (Past 1 Month) No 10:00 PM EDT Zuleyma Martell RN 2. Non-Specific Active Suici maria guadalupe Thoughts (Past 1 Month) No 07/10/2025 10:00 PM EDT Lala Martell RN 6. Suicidal Behavior (Lifetime) No 10:00 PM EDT Zuleyma Martell RN documented as of this encounter Discharge Instructions * Discharge Instructions* Richmond Correia PA-C - 07/10/2025 9:32 PM EDT You were seen in the emergency department today for fatigue and dysuria. We did a broad medical evaluation which was generally reassuring though your urine does show signs of infection. I started youon a new antibiotic which I would like you to take as prescribed and complete the full course of. Please follow-up with your PCP in 2 to 3 days for reevaluation and repeat urinalysis. If you have new or worsening symptoms in the meantime please return to the emergency department for reevaluation. documented in this encounter Medications at Time of Discharge amLODIPine (NORVASC) 10 MG tablet Take 10 mg by mouth daily. divalproex (DEPAKOTE ER) 250 MG ER 24 hr tablet Take 500 mg by mouth 2 (two) times a day. Orally twice a day propranolol (INDERAL LA) 160 mg SR capsule Take 1 capsule by mouth daily. 04/18/2011 sertraline (ZOLOFT) 25 MG tablet Take 1 tablet by mouth daily. traMADoL (ULTRAM) 50 mg tablet TAKE 1 TO 2 TABLETS BY MOUTH EVERY 6 TO 8 HOURS NEEDED 01/19/2023 aspirin (ADULT LOW DOSE ASPIRIN) 81 MG EC tablet Take 81 mg by mouth daily. cefpodoxime (VANTIN) 200 MG tablet Take 1 tablet (200 mg total) by mouth 2 (two) times a day for 7 days. 14 tablet 07/10/2025 meloxicam (MOBIC) 15 MG tablet meloxicam 15 mg tablet TAKE 1 TABLET BY MOUTH EVERY DAY NEEDED ondansetron (ZOFRAN-ODT) 4 MG disintegrating tablet Take 1 tablet (4 mg total) by mouth every 8 (eight) hours as needed for nausea. 15 tablet 10/21/2024 documented as of this encounter ED Notes * Zuleyma Martell RN - 07/10/2025 10:01 PM EDT ED Discharge Nursing Note Pt agreeeable to d/c plan. Verbal and written d/c instructions given to patient, verbalized understanding. Pt d/c home ambulatory accompanied by friend * Sindy Jeffries RN - 07/10/2025 4:59 PM EDT Pt with hx seizures here for dysuria x2 weeks. No fevers. Recently treated with nitrofurantoin by pcp without urine specimen. Fall yday at home --started swaying. No head injury. Right hand pain. Denies other pain or shortness of breath. * Richmond Correia PA-C - 07/10/2025 4:41 PM EDT Chief Complaint Chief Complaint Patient presents with Dysuria Fall Hand Pain History of Present Illness The patient, Maribel Quevedo,is a 80 y.o. female PMH HTN & seizure disorder who presents for evaluation of Dysuria, Fall, and Hand Pain The patient reports dysuria for 1-2 wks. Was given nitrofurantoin outpatient by PCP. Sx improved then returned. She presents today endorsing continued dysuria and fatigue. Family member with her reports that she has had increased forgetfulness and fatigue over the past week. No abdominal pain, flank pain, back pain, chest pain, SOB, n/v/d, fevers. Last night she stood to go to the bathroom but started swaying and ended up falling. Denies hitting head, LOC, and is not on blood thinners. In triage she reported R hand pain but denies any pain during my interview. Unless otherwise specified, I have reviewed and agree with the triage and nursing notes. ROS A ten point review of systems was negative except what was noted in the HPI. Review of Systems Past Medical History Past Medical History: Diagnosis Date Fracture of left leg 2006 High blood pressure OTHER DIAGNOSIS - PLEASE ANNOTATE. Stomach reflux Past Surgical History Past Surgical History: Procedure Laterality Date BREAST EXCISIONAL BIOPSY Right 1979 benign CARPAL TUNNEL RELEASE Bilateral HYSTERECTOMY N/A age 40 STOMACH SURGERY twisted stomach Home Medications Prior to Admission medications Medication Sig amLODIPine (NORVASC) 10 MG tablet 10 mg, Daily divalproex (DEPAKOTE ER) 250 MG ER 24 hr tablet 500 mg, 2 times daily propranolol (INDERAL LA) 160 mg SR capsule 1 capsule, Daily sertraline (ZOLOFT) 25 MG tablet 1 tablet, Daily traMADoL (ULTRAM) 50 mg tablet TAKE 1 TO 2 TABLETS BY MOUTH EVERY 6 TO 8 HOURS NEEDED aspirin (ADULT LOW DOSE ASPIRIN) 81 MG EC tablet 81 mg, Daily Patient not taking: Reported on 07/10/2025 cefpodoxime (VANTIN) 200 MG tablet 200 mg, Oral, 2 times daily meloxicam (MOBIC) 15 MG tablet meloxicam 15 mg tablet TAKE 1 TABLET BY MOUTH EVERY DAY NEEDED Patient not taking: Reported on 07/10/2025 ondansetron (ZOFRAN-ODT) 4 MG disintegrating tablet 4 mg, Oral, Every 8 hours PRN Patient not taking: Reported on 07/10/2025 Allergies Allergies Allergen Reactions Trimethoprim Anaphylaxis Sulfa (Sulfonamide Antibiotics) Rash Sulfur Rash Social and Family History Social History Tobacco Use Smoking status: Former Current packs/day: 0.00 Types: Cigarettes Quit date: 1974 Years since quittin.8 Smokeless tobacco: Never Substance Use Topics Alcohol use: Yes Comment: social Social History Substance and Sexual Activity Drug Use Never No family history on file. Physical Exam Vital Signs: ED Triage Vitals [07/10/25 1700] Encounter Vitals Group BP (!) 182/72 Systolic BP Percentile Diastolic BP Percentile Heart Rate 88 Respiratory Rate 16 Temperature 36.9 ??C (98.4 ??F) Temp Source Oral SpO2 100 % Weight Height Head Circumference Peak Flow Pain Score Pain Loc Pain Education Exclude from Growth Chart Physical Exam Vitals and nursing note reviewed. Constitutional: General: She is not in acute distress. Appearance: Normal appearance. She is not ill-appearing. HENT: Head: Normocephalic and atraumatic. Nose: Nose normal. Mouth/Throat: Mouth: Mucous membranes are moist. Eyes: Conjunctiva/sclera: Conjunctivae normal. Cardiovascular: Rate and Rhythm: Normal rate. Pulmonary: Effort: Pulmonary effort is normal. Abdominal: General: Abdomen is flat. Palpations: Abdomen is soft. Tenderness: There is no abdominal tenderness. Musculoskeletal: General: No swelling, tenderness, deformity or signs of injury. Normal range of motion. Cervical back: Normal range of motion. Skin: General: Skin is warm and dry. Neurological: Mental Status: She is alert and oriented to person, place, and time. Psychiatric: Mood and Affect: Mood normal. Behavior: Behavior normal. Laboratory Testing Results for orders placed or performed during the hospital encounter of 07/10/25 Magnesium Specimen: Blood Result Value Ref Range MAGNESIUM 2.4 1.6 - 2.6 mg/dL Basic metabolic panel Specimen: Blood Result Value Ref Range SODIUM 133 133 - 146 mmol/L CHLORIDE 95 (L) 96 - 108 mmol/L POTASSIUM 4.2 3.3 - 5.1 mmol/L CO2 25 21 - 35 mmol/L BUN 19 6 - 19 mg/dL CREATININE 0.90 0.5 - 1.5 mg/dL GLUCOSE 116 (H) 70 - 99 mg/dL CALCIUM 9.2 8.4 - 10.3 mg/dL EGFR 64 >59 mL/min/1.73m2 ANION GAP 17 10 - 20 mmol/L CBC and differential Specimen: Blood Result Value Ref Range WBC 8.07 4.00 - 11.00 K/uL RBC 4.04 4.00 - 5.20 M/uL HGB 12.0 12.0 - 16.0 g/dL HCT 37.0 36.0 - 46.0 % PLT 306 150 - 450 K/uL MCV 91.6 80.0 - 100.0 fL MCH 29.7 27.0 - 31.0 pg MCHC 32.4 32.0 - 36.0 g/dL RDW 12.7 11.5 - 14.5 % MPV 9.3 8.4 - 12.0 fL NRBC 0.00 0.00 /100 WBCs ABSOLUTE NRBC 0.00 0.00 K/uL DIFF METHOD Auto NEUTS 68.2 48.0 - 76.0 % LYMPHS 16.7 (L) 18.0 - 41.0 % MONOS 12.8 (H) 4.0 - 11.0 % EOS 0.2 0.0 - 5.0 % BASOS 0.5 0.0 - 1.5 % Granulocytes, immature (%) 1.6 (H) 0.0 - 0.9 % ABSOLUTE NEUTS 5.50 1.92 - 7.60 K/uL ABSOLUTE LYMPHS 1.35 0.72 - 4.10 K/uL ABSOLUTE MONOS 1.03 0.16 - 1.10 K/uL ABSOLUTE EOS 0.02 0.00 - 0.50 K/uL ABSOLUTE BASOS 0.04 0.00 - 0.15 K/uL Granulocytes, immature 0.13 (H) 0.00 - 0.09 K/uL Urine sediment Result Value Ref Range WBC 50-100 (*) NONE SEEN /hpf RBC 0-2 (*) NONE SEEN /hpf URINE EPITHELIAL 0-4 (*) NONE SEEN MUCUS Trace (*) NONE SEEN /hpf BACTERIA 3+ (*) NONE SEEN /hpf Urinalysis w/reflex Urine Culture Specimen: Urine Result Value Ref Range COLOR Yellow Yellow CLARITY CLOUDY GLUCOSE Negative Negative BILI Negative Negative KETONES Negative Negative SPECIFIC GRAVITY 1.015 1.005 - 1.030 BLOOD 1+ (*) Negative PH 6.0 5.0 - 8.0 Protein-UA Negative Negative NITRITE Positive (*) Negative Leukocyte esterase, ur 1+ (*) Negative Radiology Testing No orders to display ED Medication from 07/10/2025 1641 to 07/10/2025 8864 Date/Time Order Dose Route Action Action by Comments 07/10/20252044 EDT cefpodoxime (VANTIN) tablet 200 mg 200 mg Oral Given Zuleyma Martell RN -- 07/10/20252047 EDT ibuprofen (ADVIL,MOTRIN) tablet 600 mg 600 mg Oral Given Zuleyma Martell RN -- MDM Assessment and Plan: VSS and WNL outside of HTN. She is well appearing and in NAD. Exam reassuring including a benign abdomen and no evidence of traumatic injury. Dysuria: -- Evidence of UTI on UA which was gathered in triage. -- Doubt pyelo without flank pain/abdominal pain, fever. -- Doubt infected renal stone with same logic. -- Screening kidney function and CBC for leukocytosis. Fall: -- No evidence of traumatic injury on exam. No headache, neck pain, midline ttp c-spine. Able to stand and ambulate without issue. No focal deficit. -- No AC meds. HTN: Elevated BP noted. Pt w/ documented hx and on appropriate medications. I suspect elevated due to acute process for which pt presented to ER for today. Discussed follow up with PCP once acute process has resolved for monitoring and medication management as needed. Attestation: I, Richmond Correia PA-C, have seen this patient independently. This is a PA only visit Category 2 and 3: Independent Interpretation of Tests, Consideration of Tests, or External Discussion of Results: Labs: Laboratory studies were interpreted. ED Course as of 07/10/252253Jul 10, 20252253 Work up reassuring. DC on Vantin for UTI. [WM] ED Course User Index [WM] Richmond Correia PA-C Clinical Impressions as of 07/10/252253 Acute cystitis without hematuria Fatigue, unspecified type Clinical Impression Diagnosis Description Comment Final diagnoses Acute cystitis without hematuria Acute cystitis without hematuria -- Fatigue, unspecified type Fatigue, unspecified type -- Disposition: Home Richmond Correia PA-C 07/10/252253 documented in this encounter Plan of Treatment Not on file documented as of this encounter Procedures Procedure Name Priority Date/Time Associated Diagnosis Comments CBC AND DIFFERENTIAL STAT 07/10/2025 8:39 PM EDT MAGNESIUM STAT 07/10/2025 8:39 PM EDT BASIC METABOLIC PANEL STAT 07/10/2025 8:39 PM EDT URINALYSIS W/REFLEX URINE CULTURE STAT 07/10/2025 7:30 PM EDT URINE CULTURE Routine 07/10/2025 7:30 PM EDT URINE SEDIMENT STAT 07/10/2025 7:30 PM EDT documented in this encounter Results * Magnesium (07/10/2025 8:39 PM EDT) MAGNESIUM 2.4 1.6 - 2.6 mg/dL [facility] Blood 07/10/2025 8:39 PM EDT 07/10/2025 8:44 PM EDT Richmond Correia PA-C LAB BLOOD ORDERABLES Final Res ult Performing Organization Address [facility]ZIP Co de Phone Number [address] [address] * (ABNORMAL) Basic metabolic panel (07/10/2025 8:39 PM EDT) SODIUM 133 133 - 146 mmol/L [facility] CHLORIDE 95(L) 96 - 108 mmol/L [facility] POTASSIUM 4.2 3.3 - 5.1 mmol/L [facility] CO2 25 21 - 35 mmol/L [facility] BUN 19 6 - 19 mg/dL [facility] CREATININE 0.90 0.5 - 1.5 mg/dL [facility] GLUCOSE 116(H) 70 - 99 mg/dL [facility] CALCIUM 9.2 8.4 - 10.3 mg/dL [facility] EGFR 64 >59 mL/min/1.7 3m2 [facility] Comment:Estimated glomerular filtration rate calculated using the CKD-EPI refit equation. ANION GAP 17 10 - 20 mmol/L [facility] Blood 07/10/2025 8:39 PM EDT 07/10/2025 8:44 PM EDT Richmond Correia PA-C LAB BLOOD ORDERABLES Final Res ult Performing Organization Address [facility]/ZIP Co de Phone Number [address] [place] [address] * (ABNORMAL) CBC and differential (07/10/2025 8:39 PM EDT) WBC 8.07 4.00 - 11.00 K/uL [facility] RBC 4.04 4.00 - 5.20 M/uL [facility] HGB 12.0 12.0 - 16.0 g/dL [facility] HCT 37.0 36.0 - 46.0 % [facility] PLT 306 150 - 450 K/uL [facility] MCV 91.6 80.0 - 100.0 fL [facility] MCH 29.7 27.0 - 31.0 pg [facility] MCHC 32.4 32.0 - 36.0 g/dL [facility] RDW 12.7 11.5 - 14.5 % [facility] MPV 9.3 8.4 - 12.0 fL [facility] NRBC 0.00 0.00 /100 WBCs [facility] ABSOLUTE NRBC 0.00 0.00 K/uL [facility] DIFF METHOD Auto [facility] NEUTS 68.2 48.0 - 76.0 % [facility] LYMPHS 16.7(L) 18.0 - 41.0 % [facility] MONOS 12.8(H) 4.0 - 11.0 % [facility] EOS 0.2 0.0 - 5.0 % [facility] BASOS 0.5 0.0 - 1.5 % [facility] Granulocytes, immature (%) 1.6(H) 0.0 - 0.9 % [facility] ABSOLUTE NEUTS 5.50 1.92 - 7.60 K/uL [facility] ABSOLUTE LYMPHS 1.35 0.72 - 4.10 K/uL [facility] ABSOLUTE MONOS 1.03 0.16 - 1.10 K/uL [facility] ABSOLUTE EOS 0.02 0.00 - 0.50 K/uL [facility] ABSOLUTE BASOS 0.04 0.00 - 0.15 K/uL [facility] Granulocytes, immature 0.13(H) 0.00 - 0.09 K/uL [facility] Blood 07/10/2025 8:39 PM EDT 07/10/2025 8:44 PM EDT us Richmond Correia PA-C LAB BLOOD ORDERABLES Final Res ult Performing Organization Address [facility]/ZIP Co de Phone Number [address] [address] * (ABNORMAL) Urine Culture (07/10/2025 7:30 PM EDT) Special Requests None Reflexed from [id number] 07/10/2025 7:50 PM EDT [facility] Urine Culture >100,000 colony forming units per mL ESCHERICHIA COLI(A) 07/11/2025 2:52 PM EDT [facility] Urine 07/10/2025 7:30 PM EDT 07/10/2025 7:33 PM EDT Narrative Organism Antibiotic Method Susceptibility Escherichia coli Ampicillin LANE METHOD 8: Susceptible Escherichia coli Ampicillin + Sulbactam LANE METHOD 4: Susceptible Escherichia coli Cefepime LANE METHOD <=0.12: Susceptible Escherichia coli Ceftazidime LANE METHOD <=0.5: Susceptible Escherichia coli Ceftriaxone LANE METHOD <=0.25: Susceptible Escherichia coli Ciprofloxacin LANE METHOD <=0.06: Susceptible Escherichia coli Extended Spectrum B-lactamase LANE MET HOD Negative Escherichia coli Gentamicin LANE METHOD <=1: Susceptible Escherichia coli Levofloxacin LANE METHOD <=0.12: Susceptible Escherichia coli Nitrofurantoin LANE METHOD <=16: Susceptible Escherichia coli Piperacillin-tazobactam LANE METHOD <=4: Susceptible Escherichia coli Trimethoprim/sulfamethoxazole LANE MET HOD >=320: Resistant Escherichia coli Cefazolin(urine) LANE METHOD <=1: Susceptible Comment: us Shabana Lomeli MD MICROBIOLOGY - GENERAL ORDER LIAT Final Result Performing Organization Address [facility]/ZIP Co de Phone Number [address] [address] * (ABNORMAL) Urine sediment (07/10/2025 7:30 PM EDT) WBC 50-100(A) NONE SEEN /hpf [facility] RBC 0-2(A) NONE SEEN /hpf [facility] URINE EPITHELIAL 0-4(A) NONE SEEN [facility] MUCUS Trace(A) NONE SEEN /hpf [facility] BACTERIA 3+(A) NONE SEEN /hpf [facility] 07/10/2025 7:30 PM EDT 07/10/2025 7:33 PM EDT Shabana Lomeli MD URINE ORDERABLES Final Resul t Performing Organization Address [facility] de Phone Number [address] [address] * (ABNORMAL) Urinalysis w/reflex Urine Culture (07/10/2025 7:30 PM EDT) COLOR Yellow Yellow [facility] CLARITY CLOUDY [facility] GLUCOSE Negative Negative [facility] BILI Negative Negative [facility] KETONES Negative Negative [facility] SPECIFIC GRAVITY 1.015 1.005 - 1.030 [facility] BLOOD 1+(A) Negative [facility] PH 6.0 5.0 - 8.0 [facility] Protein-UA Negative Negative [facility] NITRITE Positive(A) Negative [facility] Leukocyte esterase, ur 1+(A) Negative [facility] Urine (Urine) 07/10/2025 7:3 0 PM EDT 07/10/2025 7:33 PM EDT Shabana Lomeli MD URINE ORDERABLES Final Resul t Performing Organization Address [facility] de Phone Number [address] [address] documented in this encounter Visit Diagnoses Diagnosis Acute cystitis without hematuria- Primary Fatigue, unspecified type documented in this encounter Administered Medications Inactive Administered Medications - up to 3 most recent administrations Medication Order MAR Action Action Date Dose Rate Site cefpodoxime (VANTIN) tablet 200 mg 200 mg, Oral, Every 12 hours scheduled, First dose on 07/10/25 at 2100, Administer with meals., Indication: Infection WITHOUT sepsis, Infection Source: Urinary Tract Infection / Pyelonephritis Given 07/10/2025 8:45 PM EDT 200 mg ibuprofen (ADVIL,MOTRIN) tablet 600 mg 600 mg, Oral, Once, On Thu07/10/25 at 2100, For 1 dose Given 07/10/2025 8:48 PM EDT 600 mg documented in this encounter Active and Recently Administered Medications Times are shown in EDT. Scheduled Medication Order 07/08/2025 07/09/2025 07/10/2025 cefpodoxime (VANTIN) tablet 200 mg 200 mg, Oral, Every 12 hours scheduled, First dose on Thu07/10/25 at 2100, Administer with meals., Indication: Infection WITHOUT sepsis, Infection Source: Urinary Tract Infection / Pyelonephritis 2044 (Given - Provid er: Zuleyma Martell RN) ibuprofen (ADVIL,MOTRIN) tablet 600 mg (COMPLETED) 600 mg, Oral, Once, On Thu07/10/25 at 2100, For 1 dose 2047 (Given - Provid er: Zuleyma Martell RN) documented in this encounter Care Teams Nail Mill Worker Relationship Specialty Start Date End Date Emil Villalpando DO [address] [place] [phone] [email or web address] PCP - General 06/29/17 documented as of this encounter Additional Source Comments The information contained in this document represents components of the legal health record. It is not the complete legal health record.[facility]
--- NOTE | ~2025-07-14 | XR_ITS ---
EXAMINATION: XR CHEST CLINICAL INFORMATION: confusion COMPARISON: None available. TECHNIQUE: PA and lateral views FINDINGS: No hyperinflation. Mild pulmonary reticular pattern. No consolidation, pleural effusion or pneumothorax. Cardiomediastinal silhouette size is normal. Osteopenia versus osteoporosis. Multilevel spondylosis. Degenerative changes in the shoulders. XR/XR chest 2V IMPRESSION: No acute airspace disease. EXAMINATION: XR HAND, RIGHT CLINICAL INFORMATION: Status post fall. Pain and swelling. COMPARISON: None available. TECHNIQUE: PA, lateral, and oblique views of the right hand. FINDINGS: Joint space narrowing and sclerosis along the articular surface with the subluxations involving the phalanges and metacarpophalangeal joints pronounced at the 2nd-3rd digits. Sclerosis and deformity with subchondral cyst formation at the first and second carpometacarpal joint. 3.6 mm joint space of the scaphoid lunate. Metallic anchor in the proximal aspect of the proximal phalanx third digit. Cortical irregularity in the distal phalanx of the third digit seen on the lateral projection. Osteopenia versus the process. Over hanging marginal osteophyte formation in the distal phalanges of the digits. Focal lucency in the styloid process of the radius... 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 EXAMINATION: XR WRIST, RIGHT CLINICAL INFORMATION: Status post fall. Pain and swelling. COMPARISON: None available. TECHNIQUE: PA, lateral, and oblique views of the right wrist. FINDINGS: Degenerative changes in the first and second carpometacarpal joint. Lucency in the styloid process of the radius. There is a 3 mm gap at the scapholunate joint space. No acute cortical disruption. Osteopenia versus osteoporosis. No subcutaneous emphysema. No metallic or radiopaque foreign body. There is a radiopaque/metallic structure in the proximal phalanx of the third digit likely prior surgical procedure. IMPRESSION: Probable nondisplaced fracture styloid process of the radius. Degenerative changes. Osteopenia versus osteoporosis. Electronically signed by: Donald Logan MD 07/14/2025 11:41 AM EDT
--- NOTE | ~2025-07-14 | XR_ITS ---
EXAMINATION: XR CHEST CLINICAL INFORMATION: confusion COMPARISON: None available. TECHNIQUE: PA and lateral views FINDINGS: No hyperinflation. Mild pulmonary reticular pattern. No consolidation, pleural effusion or pneumothorax. Cardiomediastinal silhouette size is normal. Osteopenia versus osteoporosis. Multilevel spondylosis. Degenerative changes in the shoulders. XR/XR wrist RT min 3V IMPRESSION: No acute airspace disease. EXAMINATION: XR HAND, RIGHT CLINICAL INFORMATION: Status post fall. Pain and swelling. COMPARISON: None available. TECHNIQUE: PA, lateral, and oblique views of the right hand. FINDINGS: Joint space narrowing and sclerosis along the articular surface with the subluxations involving the phalanges and metacarpophalangeal joints pronounced at the 2nd-3rd digits. Sclerosis and deformity with subchondral cyst formation at the first and second carpometacarpal joint. 3.6 mm joint space of the scaphoid lunate. Metallic anchor in the proximal aspect of the proximal phalanx third digit. Cortical irregularity in the distal phalanx of the third digit seen on the lateral projection. Osteopenia versus the process. Over hanging marginal osteophyte formation in the distal phalanges of the digits. Focal lucency in the styloid process of the radius... 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 EXAMINATION: XR WRIST, RIGHT CLINICAL INFORMATION: Status post fall. Pain and swelling. COMPARISON: None available. TECHNIQUE: PA, lateral, and oblique views of the right wrist. FINDINGS: Degenerative changes in the first and second carpometacarpal joint. Lucency in the styloid process of the radius. There is a 3 mm gap at the scapholunate joint space. No acute cortical disruption. Osteopenia versus osteoporosis. No subcutaneous emphysema. No metallic or radiopaque foreign body. There is a radiopaque/metallic structure in the proximal phalanx of the third digit likely prior surgical procedure. IMPRESSION: Probable nondisplaced fracture styloid process of the radius. Degenerative changes. Osteopenia versus osteoporosis. Electronically signed by: Donald Logan MD 07/14/2025 11:41 AM EDT
--- NOTE | ~2025-07-14 | CT_ITS ---
EXAMINATION: CT HEAD WITHOUT IV CONTRAST HISTORY: confusion. TECHNIQUE: Unenhanced helical CT of the head was performed per standard departmental protocol. Coronal and sagittal reformats of the head were also evaluated. One or more of the following techniques was used for dose reduction: Automated exposure control, adjustment of the mA and/or kV according to patient size, use of iterative reconstruction technique. DLP: 563 mGy-cm COMPARISON: There are no prior studies available for comparison. FINDINGS: BRAIN: There is diffuse prominence of the ventricular system and cortical sulci, consistent with atrophy. Periventricular and subcortical white matter hypodensities are noted which are nonspecific, but often seen in the setting of small vessel ischemic disease. There is no mass effect or midline shift. No intra- or extra-axial fluid collections are identified. SINUSES: The visualized paranasal sinuses are clear. The mastoid air cells and middle ear cavities are well pneumatized. ORBITS: The visualized orbits are unremarkable. BONES/SOFT TISSUES: The extracranial soft tissues are unremarkable. The calvarium is intact. No suspicious lytic or sclerotic lesions. CT/CT head/brain wo IV con IMPRESSION: No acute intracranial abnormality. Electronically signed by: Marshal Villa MD 07/14/2025 11:51 AM EDT
[2025-07-14 10:55] VITALS: BP 142/66; PULSE 64; RESP 18; TEMP 36.4; O2SAT 99; BMI 23.4
--- NOTE | 2025-07-14 10:55 | ED_ITS ---
HPI - General Adult General Chief complaint: Altered Mental Status Stated complaint: Confusion UTI Sent by PCP Time Seen by Provider: 07/14/25 11:09 History of Present Illness ED Provider: Dorie NUNO narrative: The patient is an 80-year-old woman who lives in [place] with her . Apparently a few weeks ago she seemed unwell. She had urinary discomfort and incontinence and some confusion. Her contacted her primary care doctor's office (Dr. Villalpando's office) and an antibiotic was prescribed over the phone. Apparently the patient seemed to have a positive response to the antibiotic and did better but then started to seem worse again after a few days off the antibiotic. The patient was brought to the emergency room at [facility] 4 days ago on Thursday on July 10. At that visit the patient was again felt to have a urinary tract infection and was discharged from the emergency room on cefpodoxime. At that ER visit the patient had submitted a urine sample that showed positive nitrites, 1+ leukocyte esterase and 50-100 white cells and also 3+ bacteria. Other labs at that time included a normal white count of 8 0.07 with a an unremarkable differential. Metabolic panel was unremarkable. The patient has been taking the cefpodoxime for the last 3 days but the the patient has has been feels that the patient's confusion has not been getting better and possibly it has been getting worse. Yesterday the patient could not understand how to get herself into the shower which is unusual for her. Apparently last night the patient was wandering a great deal. Today he called PCP and was advised to bring her to an emergency room. The patient has a history of a seizure disorder. Her medications include: Propranolol amlodipine divalproex sertraline. The patient herself has no significant complaints at the moment. She denies a headache. She denies chest pain. She denies abdominal pain. There has been no nausea or vomiting. I do not believe there has been a fever. The patient acknowledges that she was somewhat confused yesterday but denies feeling confused today. Related Data Allergies Allergy/AdvReac Type Severity Reaction Status Date / Time trimethoprim Allergy Anaphylaxis Verified 07/14/25 10:59 Review of Systems 2 Review of Systems: Yes all other systems are reviewed and are negative [facility] Social History Social History Smoked in Last 30 Days: No Use of substances other than those prescribed or required for medical reasons: No Advance Directives: Yes Advance Directives Information Provided: Yes Advance Directives on File: No Do you have a plan to hurt others: No Plan Physical Exam ED Vital Signs: Vital Signs - 24 hr 07/14/25 10:55 07/14/25 13:37 07/14/25 14:31 Temperature 97.5 F 98 F 97.9 F Pulse Rate 64 64 65 Respiratory Rate 18 15 18 Blood Pressure 142/66 H 134/56 L 156/69 H Pulse Oximetry 99 97 100 Oxygen Delivery Method Room Air Room Air Room Air 07/14/25 14:40 Temperature 97.9 F Pulse Rate 65 Respiratory Rate 18 Blood Pressure 156/69 H Pulse Oximetry 100 Oxygen Delivery Method Room Air BMI result Body Mass Index 23.4 Const Other: The patient is an 80-year-old woman. She is awake and alert. She does not appear in obvious distress. She does not appear obviously ill. HENMT Other: Face is symmetrical. Mucous membranes are moist. The appearance of the face is unremarkable. Eyes Other: Pupils are round equal, conjunctivae are clear, extraocular movements intact, no significant nystagmus General: appearance normal, both eyes and all related structures Neck Neck: Yes normal visual inspection, Yes full ROM, Yes no lymphadenopathy and Yes no JVD Resp Effort & Inspection: normal respiratory effort Auscultation: clear to auscultation bilaterally GI Other: Abdomen is soft and nontender Skin Other: The skin is dry and unremarkable Neuro Other: The patient is awake and alert. She seems to have a fairly clear mental status. She is reasonably well oriented. She was able to tell me the correct year and the name of the president. When I asked her the month she had responded July but was then able to correct herself and identify today as Halloween. Pupils are round, equal, and reactive to light, extraocular movements are intact, there was no nystagmus, face is symmetrical, speech is clear and appropriate, she has 5/5 strength in all extremities. Finger-nose is normal. Gait is steady. No broad-based gait or other gait difficulty. Extrem Other: There is no calf swelling or tenderness. No asymmetry. No peripheral edema. She has some ecchymotic changes to the skin of the fingers of the right hand but there was no deformity to the fingers except for what seems to be some chronic ulnar deviation of the fingers of both hands. She seems to be moving her fingers without significant pain. Suspicion for a fracture would be very low. Course Course Course Narrative: This is a Rapid Medical Examination (RME) performed by Patrick Verdin PA-C in triage. Full HPI, ROS, assessment and treatment plan per primary provider in the Main ED. Hx: 80 yo F here for eval of increasing confusion. she presents with family who reports recent UTIs x2, most recently diagnosed w/ UTI 5 days ago at [facility], placed on cefpodoxime. symptoms, including confusion, dysuria, urinary incontinence and increased thirst have persisted despite treatment. also endorses fall 6 days ago, no head strike or LOC, no thinners - having right wrist/hand pain/swelling. PE/vitals: alert, AOX3, following commands. no focal neuro deficits. noted swelling to right wrist/hand with discoloration to right 3/4th digits. FROM intact to digits/wrist. Plan: labs, UA, XRs, CT Medical Decision Making Medical Decision Making MDM Narrative: The patient is an 80-year-old woman who lives with her . She has a history of a seizure disorder and is on Depakote. Apparently about 3 weeks ago she had urinary symptoms and some mental status changes. She was treated empirically with nitrofurantoin. No urine testing was done at that time. Apparently she improved on the nitrofurantoin but then got worse. Four days ago she went to the emergency room at [facility]. She submitted a urinalysis suspicious for UTI. She was prescribed cefpodoxime which she has been taking since then. At no point has she had a fever. She has a exhibited some bizarre behavior over the last couple of days, particularly yesterday and last night. She exhibited some wandering behavior last night. The patient is at a neighbor were very concerned about a change in the patient's mental status. Here in the emergency room the patient seemed fairly coherent and the acknowledges that her mental status today seems much closer to her baseline than she has for the last couple of days. The patient is afebrile today. She is not tachycardic, her heart rate is in the 60s. She has a normal EKG. Clinically the patient's physical exam seems quite reassuring. She does not seem frankly disoriented or confused or encephalopathic in any way. Her CBC shows a white count of 7.6. She has 64.8% neutrophils, 20% lymphocytes and 13% monocytes. Her basic metabolic panel shows unremarkable electrolytes. Renal function seems to be close to baseline or slightly better than baseline. Head CT was unremarkable. There are age-related changes. An x-ray was done of the right hand and wrist which I think show findings consistent with a rheumatoid arthritis. The radiologist questions some minor fractures which I think are unlikely to represent fractures. Chest x-ray was unremarkable. The patient has an elevated C-reactive protein and an elevated ESR. The significance of these elevations of these inflammatory markers is not clear but my suspicion for these being an indicator of an acute infection is not very high. The patient is afebrile. She does not have an elevated white count. She has a an unremarkable procalcitonin of 0.06. Given the clinical and radiographic findings consistent with a rheumatoid arthritis I suspect that the inflammatory markers may be more indicative of rheumatoid arthritis or similar condition rather than an indication of an acute infectious process. A Depakote level was checked which is at the higher end of the therapeutic range at 96. The patient was looking extremely well in the emergency room. She has a normal gait. Her mental status seemed quite clear. She was eating and drinking well. I was able to get the results of the urine culture from [facility] from 4 days ago. Her urine culture grew greater than 100,000 colonies of E coli that was sensitive to ceftriaxone (the patient is currently on cefpodoxime, another 3rd generation cephalosporin). Therefore the patient is on correct therapy for that urine culture. My overall impression is that the patient looks quite well. She was eating and drinking and seemed very personable. She will be discharged to follow up with the regular doctor. Perhaps her Depakote level, which is at the high end of the therapeutic range, should be reduced. Lab Data 07/14/25 12:00 07/14/25 12:00 Labs: Lab Results 07/14/25 07/14/25 07/14/25 Range/Units 12:00 13:45 13:51 WBC 7.6 (4.8-10.8) X10*3/uL RBC 3.74 L (4.20-5.50) X10*6/uL Hgb 11.1 L (12.0-16.0) g/dl Hct 33.9 L (37.0-47.0) % MCV 90.6 (80.0-98.0) fL MCH 29.7 (27.0-33.0) pg MCHC 32.7 (31.0-35.0) g/dl RDW 12.6 (11.0-16.0) % Plt Count 216 (160-400) X10*3/uL MPV 8.9 L (9.4-12.3) fL Immature Gran % (Auto) 1.6 H (0.0-0.4) % Neut % (Auto) 64.8 (45-73) % Lymph % (Auto) 20.1 (20-40) % Collin % (Auto) 12.7 H (2-11) % Eos % (Auto) 0.4 (0-4) % Baso % (Auto) 0.4 (0-2) % Lymph # (Auto) 1.5 (1.2-4.9) X10*3/uL Collin # (Auto) 1.0 (0.1-1.2) X10*3/uL Eos # (Auto) 0.0 (0.0-0.4) X10*3/uL Baso # (Auto) 0.0 (0.0-0.2) X10*3/uL Abs Immat Gran (auto) 0.12 H (0.00-0.03) X10*3/uL Absolute Neuts (auto) 4.9 (2.0-8.3) x10*3/uL Absolute Nucleated RBC 0.000 (0.0-0.012) X10*3/uL Nucleated RBC % (auto) 0.0 (0.0-0.2) /100WBC ESR 75 H (0-20) MM/HR Sodium 134 L (135-145) mmol/L Potassium 4.3 (3.3-5.1) mmol/L Chloride 98 (96-108) mmol/L Carbon Dioxide 27 (22-29) mmol/L Anion Gap 13 (12-20) BUN 20 H (9-16) mg/dL Creatinine 1.09 (0.5-1.4) mg/dL Estim Creat Clear Calc 37.8 Estimated GFR 48 Random Glucose 89 (60-115) mg/dL Calcium 8.8 (8.4-10.2) mg/dL Magnesium 2.4 (1.6-2.6) mg/dL Total Bilirubin 0.3 (0.0-1.0) mg/dL AST 47 H (5-31) U/L ALT 31 (0-31) U/L Alkaline Phosphatase 124 H (39-117) U/L C-Reactive Protein 12.07 H (< or = 0.50) mg/dL Total Protein 6.9 (6.5-8.0) g/dL Albumin 3.5 (3.5-5.0) g/dL Procalcitonin 0.06 ng/mL Urine Color Yellow Urine Appearance Clear Urine pH 6.0 (5.0-9.0) Ur Specific Lejunior 1.020 (1.005-1.025) Urine Protein Trace (Neg-Trace) mg/dL Urine Glucose (UA) Negative (Negative) mg/dL Urine Ketones Trace (Negative) mg/dL Urine Blood Trace H (Negative) Urine Nitrite Negative (Negative) Ur Leukocyte Esterase Small (1+) H (Negative) Urine RBC 6-10 H (0-2) /HPF Urine WBC 11-20 H (0-5) /HPF Ur Squamous Epith Cells 6-10 (0-2) /HPF Urine Bacteria None Seen (None Seen) Hyaline Casts 0-2 (0-2) /LPF Valproic Acid 96.7 (50.0-100.0) mcg/mL Independent Interpretation I performed an independent interpretation of an: EKG Interpretation: EKG at 11 50 shows normal sinus rhythm at 63 beats per minute. It is a normal EKG. Discharge Plan Discharge Clinical Impression: Altered mental status Patient Disposition: Home, Self-Care Additional Instructions: I was able to get records from [facility]. The urine sample you gave on Thursday was set up for a culture. The culture was positive for an infection. The organism that grew was an E coli organism. The antibiotic you are currently taking was tested for efficacy against this organism and it was considered effective. Therefore please finish taking the antibiotic prescribed. Drink lot of fluids. Please follow up with your regular doctor's office next week. We tested your blood for your Depakote level. This came back at 96. The therapeutic range for Depakote is between 50 and 100. Therefore you were very close to the high level of the therapeutic range of Depakote. It could be that this might be too high for you. Please discuss your dosage with your regular doctor. Return to the emergency room if significantly worse. Referrals: Emil Villalpando MD [Primary Care Provider, Internal Medicine] Interventions: ED Discharge Assessment Last Done: 07/14/25 14:40 Discharge Date/Time: 07/14/25 14:41 Print Language: Eritrean
--- NOTE | 2025-07-14 11:00 | ECG_ITS ---
Test Reason : confusion Blood Pressure : */* mmHG Vent. Rate : 63 BPM Atrial Rate : 63 BPM P-R Int : 166 ms QRS Dur : 92 ms QT Int : 398 ms P-R-T Axes : 102 33 28 degrees QTcB Int : 407 ms Normal sinus rhythm Normal ECG No previous ECGs available Referred By: Karla Verdin Electronically Signed By: SOFÍA ZAVALETA
[2025-07-14 12:04] LABS: MANUAL DIFF FLAG NO
[2025-07-14 12:08] LABS: Hematocrit 33.9 % (37.0-47.0); Hemoglobin 11.1 g/dl (12.0-16.0); Imm Gran Abs Auto 0.12 X10*3/uL (0.00-0.03); Imm Gran Pct Auto 1.6 % (0.0-0.4); Lymphocytes Absolute Auto 1.5 X10*3/uL (1.2-4.9); Mean Corpuscular HGB Conc 32.7 g/dl (31.0-35.0); Mean Corpuscular Hemoglobin 29.7 pg (27.0-33.0); Mean Corpuscular Volume 90.6 fL (80.0-98.0); NRBC Abs Auto 0.000 X10*3/uL (0.0-0.012); NRBC Pct Auto 0.0 /100WBC (0.0-0.2); Platelet Count 216 X10*3/uL (160-400); Red Blood Count 3.74 X10*6/uL (4.20-5.50); White Blood Count 7.6 X10*3/uL (4.8-10.8)
[2025-07-14 12:28] LABS: Alanine Aminotransferase 31 U/L (0-31); Albumin Level 3.5 g/dL (3.5-5.0); Alkaline Phosphatase 124 U/L (39-117); Anion Gap 13 (12-20); Aspartate Amino Transferase 47 U/L (5-31); Blood Urea Nitrogen 20 mg/dL (9-16); Calcium 8.8 mg/dL (8.4-10.2); Carbon Dioxide 27 mmol/L (22-29); Chloride 98 mmol/L (96-108); Creatinine Clr Calc Pharmacy 37.8; Estimated Glomerular Filt Rate 48; Magnesium 2.4 mg/dL (1.6-2.6); Potassium 4.3 mmol/L (3.3-5.1); Sodium 134 mmol/L (135-145); Total Protein 6.9 g/dL (6.5-8.0)
[2025-07-14 13:18] LABS: Procalcitonin 0.06 ng/mL
--- OUTSIDE RECORDS SUMMARY | 2025-07-14 13:21 | XMS_ITS | Encounter Summary ---
Author Organization [facility] Address [address] [place] [id number] Phone Care Team Providers Care Food Science Technician Name Role Phone Emil Villalpando Primary Care Provider [phone] Encounter Details Date Type Department Care Team (Late st Contact Info) Description 03/13/2023 Procedure Pass [facility], Ct Scan - [address] [address] Social History Tobacco Use Types Packs/Day Years [...] documented as of this encounter Care Teams Food Science Technician Relationship Specialty Start Date End Date Emil Villalpando DO [address] [place] [address] PCP - General 06/29/17 documented as of this encounter Additional Source Comments The information contained in this document represents components of the legal health record. It is not the complete legal health record.[facility]
--- OUTSIDE RECORDS SUMMARY | 2025-07-14 13:21 | XMS_ITS | Encounter Summary ---
Author Organization [facility] Address [address] [place] [address] Phone Care Team Providers Care Sumatra Opener Name Role Phone Emil Villalpando DO Primary Care Provider [phone] Encounter Details Date Type Department Care Team ([facility] st Contact Info) Description 07/09/2018 Ancillary Orders Virtual Department [address] [place] [address] Emil Villalpando DO [address] [facility] [place] [address] [place] [address] [email or web address] Breast screening; Encounter for screening for osteoporosis Social History Tobacco Use Types Packs/Day Years Used Date Smoking Tobacco: Never Assessed Comments Unknown Sex and Gender Information Value Date Recorded Sex Assigned at Female 10/20/2024 10:32 PM EST Legal Sex Female 10:10 PM EDT Gender Identity Female 10/20/2024 10:32 PM EST Sexual Orientation Straight 10/20/2024 10 :32 PM EST documented as of this encounter Plan of Treatment Not on file documented as of this encounter Results * BD DXA AXIAL (SPINE) WITH HIP (12/28/2018 9:00 AM EDT) Anatomical Region Laterality Modality Bone Density Bone Density 12/28/2018 9:12 AM EDT Impressions 12/28/2018 9:14 AM EDT Osteopenia with interval decrease in bilateral hip bone mineral density since 2011. POS - [id number] Narrative 12/28/2018 9:14 AM EDT This is a 73-year-old postmenopausal white female who is not on estrogen replacement therapy. She reportedly takes occasional calcium supplements and denies a perceived height loss. Evaluation of the lumbar spine and hips was performed and felt to be technically adequate with comparison made to prior studies of 2006 and 02/20/2012. Total bone mineral density in the L1-L4 vertebral bodies was calculated at 1.016 gm/cm2 with a T-score of -0.3 and Z-score of 2.1, falling within the WHO classification of normal, without significant interval change from 2011. Total bone mineral density in the right hip was calculated at 0.832 gm/cm2 with a T-score of -0.9 and Z-score of 0.9 falling within the WHO classification of normal, representing an interval decline of 5.5% since 2011. Total bone mineral density in the left hip was calculated at 0.772 gm/cm2 with a T-score of -1.4 and Z-score of 0.4 falling within the WHO classification of osteopenia, representing an interval decline of 7.8% since 2011. Procedure Note Neel Patterson MD - 12/28/2018 This is a 73-year-old postmenopausal white female who is not on estrogenreplacement therapy. She reportedly takes occasional calcium supplementsand denies a perceived height loss. Evaluation of the lumbar spine and hips was performed and felt to betechnically adequate with comparison made to prior studies of 2006nd 02/20/2012. Total bone mineral density in the L1-L4 vertebral bodies was calculated at1.016 gm/cm2 with a T-score of -0.3 and Z-score of 2.1, falling within theWHO classification of normal, without significant interval change [id number]. Total bone mineral density in the right hip was calculated at 0.832 gm/av0gwxt a T-score of -0.9 and Z-score of 0.9 falling within the WHOclassification of normal, representing an interval decline of 5.5% [id number]. Total bone mineral density in the left hip was calculated at 0.772gm/cm2 with a T-score of -1.4 and Z-score of 0.4 falling within the WHOclassification of osteopenia, representing an interval decline of 7.8%since 2011. IMPRESSION: Osteopenia with interval decrease in bilateral hip bone mineral densitysince 2011. POS - [id number] us Emil Villalpando DO IMG BD BONE DENSITY DEXA Final R esult * BI MAMMOGRAM SCREENING WITH TOMOSYNTHESIS WITH CAD (BILATERAL) (12/28/2018 8:42 AM EDT) Anatomical Region Laterality Modality Breast Left, Breast Right, Breast Bilateral Bila teral Mammography 12/28/2018 2:20 PM EDT Impressions 12/28/2018 2:23 PM EDT No mammographic evidence of malignancy. RECOMMENDED FOLLOWUP: Routine screening mammography is recommended, as clinically appropriate. The results will be sent to the patient. BI-RADS CATEGORY: 1 - Negative. BREAST DENSITY: The breast tissue is heterogeneously dense, an appearance which lowers the sensitivity of mammography. POS - CDHMAMA Narrative 12/28/2018 2:23 PM EDT BI MAMMOGRAM SCREENING WITH TOMOSYNTHESIS WITH CAD (BILATERAL) HISTORY: Screening. COMPARISON: Prior studies dating back to 2006 most recently 03/16/2014. TECHNIQUE: Digital breast tomosynthesis was performed in CC and MLO projections. Reconstructed 2-D C-views generated from the tomosynthesis images. Images interpreted in conjunction with R-2 Image Real Estate Firm Manager computer-aided detection (CAD). FINDINGS: BREAST DENSITY: The breast parenchyma is heterogeneously dense, which may lower the sensitivity of mammography. There are no suspicious masses, suspicious areas of architectural distortion or suspicious clusters of microcalcifications. Procedure Note Patricia Moise MD - 12/28/2018 BI MAMMOGRAM SCREENING WITH TOMOSYNTHESIS WITH CAD (BILATERAL) HISTORY: Screening. COMPARISON: Prior studies dating back to 2006 most [id number]. TECHNIQUE: Digital breast tomosynthesis was performed in CC and MLOprojections. Reconstructed 2-D C-views generated from the tomosynthesisimages. Images interpreted in conjunction with R-2 Image Checkercomputer-aided detection (CAD). FINDINGS: BREAST DENSITY: The breast parenchyma is heterogeneously dense, which maylower the sensitivity of mammography. There are no suspicious masses, suspicious areas of architecturaldistortion or suspicious clusters of microcalcifications. IMPRESSION: No mammographic evidence of malignancy. RECOMMENDED FOLLOWUP: Routine screening mammography is recommended, asclinically appropriate. The results will be sent to the patient. BI-RADS CATEGORY: 1 - Negative. BREAST DENSITY: The breast tissue is heterogeneously dense, an appearancewhich lowers the sensitivity of mammography. POS - CDHMAMA us Emil Villalpando DO IMG MG EXAMS Final Result documented in this encounter Visit Diagnoses Diagnosis Breast screening Breast screening, unspecified Encounter for screening for osteoporosis Breast screening Breast screening, unspecified Encounter for screening for osteoporosis documented in this encounter Additional Health Concerns Infection Onset Date Last Indicated Resolved Time CoV-Risk 10/20/2024 10/20/2024 10/31/2024 1:22 AM EST documented as of this encounter Care Teams Sumatra Opener Relationship Specialty Start Date End Date Emil Villalpando DO [address] [place] [address] [email or web address] PCP - General 06/29/17 documented as of this encounter Additional Source Comments The information contained in this document represents components of the legal health record. It is not the complete legal health record.[facility]
--- OUTSIDE RECORDS SUMMARY | 2025-07-14 13:21 | XMS_ITS | Encounter Summary ---
Author Organization [facility] Address [address] [place] [address] Phone Care Team Providers Care Ibm Websphere Portal Developer Name Role Phone Emil Villalpando DO Primary Care Provider [phone] Encounter Details Date Type Department Care Team (Late st Contact Info) Description 07/06/2018 Transcribe Orders [facility] [address] [place] [address] Emil Villalpando DO [address] [facility] [place] [address] [place] [address] [email or web address] Essential hypertension, malignant (Primary Dx); Pure hypercholesterolemia Social History Tobacco Use Types Packs/Day Years [...] documented as of this encounter Results * (ABNORMAL) Lipid panel (07/06/2018 7:39 AM EDT) HDL 67 mg/dL [facility] Comment: Interpretation: Risk Level Females Decreased >55mg/dL Average 50-55 mg/dL Increased <50 mg/dL CHOLESTEROL 231 0 - 240 mg/dL [facility] TRIGLYCERIDES 128 30 - 160 mg/dL [facility] LDL 138(H) 50 - 129 mg/dL [facility] Comment: LDL levels in terms of risk for coronary heart disease: <100 mg/dL: Optimal 100-129 mg/dL: Near or above optimal 130-159 mg/dL: Borderline high 160-189 mg/dL: High >190 mg/dL: Very High CARDIAC RISK RATIO 3.4 3.3 - 4.4 C [facility] Blood 07/06/2018 7:39 AM EDT 07/06/2018 7:50 AM EDT us Emil A Bigda DO LAB BLOOD ORDERABLES Final Resul t [facility] [address] [place] [address] * (ABNORMAL) Comprehensive metabolic panel (07/06/2018 7:39 AM EDT) SODIUM 141 133 - 146 mmol/L [facility] POTASSIUM 5.3(H) 3.3 - 5.1 mmol/L [facility] CHLORIDE 101 96 - 108 mmol/L [facility] CO2 28 21 - 35 mmol/L [facility] BUN 10 6 - 19 mg/dL [facility] CREATININE 1.00 0.5 - 1.5 mg/dL [facility] GLUCOSE 107(H) 70 - 99 mg/dL [facility] ALBUMIN 4.1 3.9 - 4.8 g/dL [facility] TOTAL PROTEIN 7.1 6.5 - 8.0 g/dL [facility] CALCIUM 9.5 8.4 - 10.3 mg/dL [facility] ALKALINE PHOSPHATASE 46 39 - 117 U/L [facility] TOTAL BILIRUBIN 0.3 0.0 - 1.2 mg/dL [facility] AST 21 0 - 37 U/L [facility] ALT 13 0 - 40 U/L [facility] GLOBULIN 3.0 1 - 4.8 g/dL [facility] EGFR 55(L) >59 mL/min/1.7 3m2 [facility] Comment:If patient is black, multiply result by 1.159. Estimated glomerular filtration rate calculated using the CKD-EPI equation. ANION GAP 17 10 - 20 mmol/L [facility] Blood 07/06/2018 7:39 AM EDT 07/06/2018 7:50 AM EDT us Emil Villalpando DO LAB BLOOD ORDERABLES Final Resul t [facility] [address] [place] [address] documented in this encounter Visit Diagnoses Diagnosis Essential hypertension, malignant- Primary Pure hypercholesterolemia documented in this encounter Additional Health Concerns Infection Onset Date Last Indicated Resolved Time CoV-Risk 10/20/2024 10/20/2024 10/31/2024 1:22 AM EST documented as of this encounter Care Teams Ibm Websphere Portal Developer Relationship Specialty Start Date End Date Emil Villalpando DO [address] [place] [address] [email or web address] PCP - General 06/29/17 documented as of this encounter Additional Source Comments The information contained in this document represents components of the legal health record. It is not the complete legal health record.[facility]
--- OUTSIDE RECORDS SUMMARY | 2025-07-14 13:22 | XMS_ITS | Encounter Summary ---
Author Organization [facility] Address [address] [place] [address] Phone Care Team Providers Care Vp Analysis Name Role Phone Emil Villalpando DO Primary Care Provider [phone] Encounter Details Date Type Department Care Team ([facility] st Contact Info) Description 05/03/2025 Ancillary Orders Virtual Department [address] [place] [address] Emil Villalpando DO [address] [facility] [place] [address] [place] [address] [email or web address] Osteopenia of both hips (Primary Dx); Other specified disorders of bone density and structure, right thigh Social History Tobacco Use Types Packs/Day Years Used Date Smoking Tobacco: Former Cigarettes Smokeless Tobacco: Never Alcohol Use Standard Drinks/Week Comments Yes 0 [...] with a working camera? Not on file Intimate Partner Violence Answer Date R ecorded Are you denied basic needs s uch as food, clothing, or medical care? No 10/20/2024 In the past 12 months have y ou been in a relationship with a person who hurts, threatens, or tries to control you? No 10/20/2024 Are you denied basic needs s uch as food, clothing, or medical care? No 10/20/2024 In the past 12 months have y ou been in a relationship with a person who hurts, threatens, or tries to control you? No 10/20/2024 Comments No Sex and Gender Information Value Date Recorded Sex Assigned at Female 10/20/2024 10:32 PM EST Legal Sex Female 10:10 PM EDT Gender Identity Female 10/20/2024 10:32 PM EST Sexual Orientation Straight 10/20/2024 10 :32 PM EST documented as of this encounter Plan of Treatment Not on file documented as of this encounter Visit Diagnoses Diagnosis Osteopenia of both hips- Primary Other specified disorders of bone density and structure, right thigh documented in this encounter Care Teams Vp Analysis Relationship Specialty Start Date End Date Emil Villalpando DO [address] [place] [address] [email or web address] PCP - General 06/29/17 documented as of this encounter Additional Source Comments The information contained in this document represents components of the legal health record. It is not the complete legal health record.[facility]
--- OUTSIDE RECORDS SUMMARY | 2025-07-14 13:22 | XMS_ITS | Encounter Summary ---
Author Organization [facility] Address [address] [facility] [place] [address] Phone Care Team Providers Care Alley Worker Name Role Phone Emil Villalpando DO Primary Care Provider [phone] Encounter Details Date Type Department Care Team ([facility] st Contact Info) Description 05/03/2025 Transcribe Orders Virtual Department [address] [place] [address] Emil Villalpando DO [address] [facility] [place] [address] [place] [address] [email or web address] Osteopenia of both hips (Primary Dx) Social History Tobacco Use Types Packs/Day Years [...] Diagnoses Diagnosis Osteopenia of both hips- Primary documented in this encounter Care Teams Alley Worker Relationship Specialty Start Date End Date Emil Villalpando DO [address] [place] [address] [email or web address] PCP - General 06/29/17 documented as of this encounter Additional Source Comments The information contained in this document represents components of the legal health record. It is not the complete legal health record.[facility]
--- OUTSIDE RECORDS SUMMARY | 2025-07-14 13:22 | XMS_ITS | Encounter Summary ---
Author Organization [facility] Address [address] [place] [address] Phone Care Team Providers Care Cv Tech Name Role Phone Emil Villalpando DO Primary Care Provider [phone] Encounter Details Date Type Department Care Team (Latest Contact Info) Description 12/22/2022 Transcribe Orders Virtual Department [address] [place] [address] Columba Moss PA [address] [facility] [place] [address] Right upper quadrant pain (Primary Dx) Social History Tobacco Use Types Packs/Day Years Used Date Smoking Tobacco: Never Assessed Comments No Sex and Gender Information Value Date Recorded Sex Assigned at Female 10/20/2024 10:32 PM EST Legal Sex Female 10:10 PM EDT Gender Identity Female 10/20/2024 10:32 PM EST Sexual Orientation Straight 10/20/2024 10 :32 PM EST documented as of this encounter Plan of Treatment Not on file documented as of this encounter Visit Diagnoses Diagnosis Right upper quadrant pain- Primary Abdominal pain, right upper quadrant documented in this encounter Additional Health Concerns Infection Onset Date Last Indicated Resolved Time CoV-Risk 10/20/2024 10/20/2024 10/31/2024 1:22 AM EST documented as of this encounter Care Teams Cv Tech Relationship Specialty Start Date End Date Emil Villalpando DO [address] [facility] [place] [address] PCP - General 06/29/17 documented as of this encounter Additional Source Comments The information contained in this document represents components of the legal health record. It is not the complete legal health record.[facility]
--- OUTSIDE RECORDS SUMMARY | 2025-07-14 13:22 | XMS_ITS | Encounter Summary ---
Author Organization [facility] Address [address] [place] [phone] Phone Care Team Providers Care Salon Professional Name Role Phone Emil Villalpando Primary Care Provider [phone] Encounter Details Date Type Department Care Team (Late st Contact Info) Description 07/21/2023 Ancillary Orders [facility], X-Ray - [facility] [address] [place] [address] Columba Moss PA [address] [facility] [place] [address] Pain Social History Tobacco Use Types Packs/Day Years [...] documented as of this encounter Results * XR LUMBOSACRAL SPINE 2-3 VIEWS (07/21/2023 8:19 AM EST) Anatomical Region Laterality Modality L-spine Computed Radiogr aphy 07/21/2023 4:52 PM EST Impressions 07/21/2023 4:53 PM EST Degenerative changes. No acute osseous abnormality. Narrative 07/21/2023 4:53 PM EST XR LUMBOSACRAL SPINE 2-3 VIEWS COMPARISON: CT ABDOMEN WITH CONTRAST FINDINGS: Dextroconvex curvature of the thoracolumbar junction and levoconvex curvature of the mid-lower lumbar spine. No progression of vertebral body height loss of the previously seen compression fracture of T12. No evidence of new fracture. Multilevel endplate spurring and intervertebral space narrowing, more pronounced at L4-L5 and L5-S1. Facet degenerative changes in the mid-lower lumbar spine. Procedure Note Akin Newton MD - 07/21/2023 XR LUMBOSACRAL SPINE 2-3 VIEWS COMPARISON: CT ABDOMEN WITH CONTRAST FINDINGS: Dextroconvex curvature of the thoracolumbar junction and levoconvexcurvature of the mid-lower lumbar spine. No progression of vertebral bodyheight loss of the previously seen compression fracture of T12. Noevidence of new fracture. Multilevel endplate spurring and intervertebralspace narrowing, more pronounced at L4-L5 and L5-S1. Facet degenerativechanges in the mid-lower lumbar spine. IMPRESSION: Degenerative changes. No acute osseous abnormality. Columba PICKERING IMG XR SPINE Final Resul t documented in this encounter Visit Diagnoses Diagnosis Pain Generalized pain Pain Generalized pain documented in this encounter Additional Health Concerns Infection Onset Date Last Indicated Resolved Time CoV-Risk 10/20/2024 10/20/2024 10/31/2024 1:22 AM EST documented as of this encounter Care Teams Salon Professional Relationship Specialty Start Date End Date Emil Villalpando DO [address] [place] [address] [email or web address] PCP - General 06/29/17 documented as of this encounter Additional Source Comments The information contained in this document represents components of the legal health record. It is not the complete legal health record.[facility]
--- OUTSIDE RECORDS SUMMARY | 2025-07-14 13:22 | XMS_ITS | Encounter Summary ---
Author Organization [facility] Address [address] [place] [address] Phone Care Team Providers Care Automotive Window Tinter Name Role Phone Emil Villalpando DO Primary Care Provider [phone] Encounter Details Date Type Department Care Team (Late st Contact Info) Description 06/17/2018 Procedure [facility], Ct Scan - [address] [address] Social History Tobacco Use Types Packs/Day Years [...] documented as of this encounter Care Teams Automotive Window Tinter Relationship Specialty Start Date End Date Emil Villalpando DO [address] [facility] [place] [address] [email or web address] PCP - General 06/29/17 documented as of this encounter Additional Source Comments The information contained in this document represents components of the legal health record. It is not the complete legal health record.[facility]
--- OUTSIDE RECORDS SUMMARY | 2025-07-14 13:22 | XMS_ITS | Encounter Summary ---
Author Organization [facility] Address [address] [place] [address] Phone Care Team Providers Care Bone Cooking Operator Name Role Phone Emil Villalpando Primary Care Provider [phone] Encounter Details Date Type Department Care Team (Late st Contact Info) Description 10/20/2024 Procedure Pass [facility], Ct Scan - [address] [address] Social History Tobacco Use Types Packs/Day Years [...] PM EST documented as of this encounter Functional Status * Calculated C-SSRS Risk Score (Lifetime/Recent) Answer Date of Assessment Author No Risk Indicated 10/20/2024 10:29 PM EST Terrie Ha RN * [place] Suicide Severity Rating Scale (Screener/Recent Self-Report) Question Answer Date of Assessment Author 1. Wish to be (Past 1 Month) No 10/20/2024 10:29 PM Sanam Farias RN 2. Non-Specific Active Suicidal Thoughts (Past 1 Month) No 10/20/2024 10:29 PM Sanam Farias RN 6. Suicidal Behavior (Lifetime) No 10/20/2024 10:29 PM Sanam Farias RN documented as of this encounter Plan of Treatment Not on file documented as of this encounter Visit Diagnoses Not on filedocumented in this encounter Additional Health Concerns Infection Onset Date Last Indicated Resolved Time CoV-Risk 10/20/2024 10/20/2024 10/31/2024 1:22 AM EST documented as of this encounter Care Teams Bone Cooking Operator Relationship Specialty Start Date End Date Emil Villalpando DO [address] [place] [address] [email or web address] PCP - General 06/29/17 documented as of this encounter Additional Source Comments The information contained in this document represents components of the legal health record. It is not the complete legal health record.[facility]
--- OUTSIDE RECORDS SUMMARY | 2025-07-14 13:22 | XMS_ITS | Encounter Summary ---
Author Organization [facility] Address [address] [place] [address] Phone Care Team Providers Care Divinity Teacher Name Role Phone Emil Villalpando DO Primary Care Provider [phone] Encounter Details Date Type Department Care Team ([facility] st Contact Info) Description 12/24/2018 Transcribe Orders Virtual Department [address] [place] [address] Emil Villalpando DO [address] [facility] [place] [address] [email or web address] Social History Tobacco Use Types Packs/Day Years [...] documented as of this encounter Care Teams Divinity Teacher Relationship Specialty Start Date End Date Emil Villalpando DO [address] [place] [address] PCP - General 06/29/17 documented as of this encounter Additional Source Comments The information contained in this document represents components of the legal health record. It is not the complete legal health record.[facility]
--- OUTSIDE RECORDS SUMMARY | 2025-07-14 13:22 | XMS_ITS | Clinical Summary ---
Author Organization [facility] Address [address] [facility] [address] [place] [address] Phone Care Team Providers Care Drivers' Cash Clerk Name Role Phone Emil Villalpando DO Primary Care Provider [phone] Allergies Active Allergy Reactions Criticality Noted Date Comments Sulfa (Sulfonamide Antibiotics) Rash Low 01/12 Sulfur Rash Low 06/03/2016 Trimethoprim Anaphylaxis High 06/03/2016 Medications propranolol (INDERAL LA) 160 mg SR capsule Take 1 capsule by mouth daily. 04/18/20 11 Active sertraline (ZOLOFT) 25 MG tablet Take 1 tablet by mouth daily. Active divalproex (DEPAKOTE ER) 250 MG ER 24 hr tablet Take 500 mg by mouth 2 (two) times a day. Orally twice a day Active aspirin (ADULT LOW DOSE ASPIRIN) 81 MG EC tablet Take 81 mg by mouth daily. Active meloxicam (MOBIC) 15 MG tablet meloxicam 15 mg tablet TAKE 1 TABLET BY MOUTH EVERY DAY NEEDED Active traMADoL (ULTRAM) 50 mg tablet TAKE 1 TO 2 TABLETS BY MOUTH EVERY 6 TO 8 HOURS NEEDED 01/20/20 23 Active ondansetron (ZOFRAN-ODT) 4 MG disintegrating tablet Take 1 tablet (4 mg total) by mouth every 8 (eight) hours as needed for nausea. 15 tablet 10/21/19 25 Active Additional Information Patient not taking.Reported on 07/10/2025 amLODIPine (NORVASC) 10 MG tablet Take 10 mg by mouth daily. Active cefpodoxime (VANTIN) 200 MG tablet Take 1 tablet (200 mg total) by mouth 2 (two) times a day for 7 days. 14 tablet 07/10/20 25 025 Active Active Problems No known active problems Encounters Date Type Department Care Team Description 07/10/2025 8:04 PM EDT - 07/10/2025 10:02 PM EDT Emergency [facility] [address] [place] [address] Discharge Disposition: Home or Self Care 05/03/2025 Ancillary Orders Virtual Department [address] [place] [address] Bigda, Emil A, DO Osteopenia of both hips (Primary Dx); Other specified disorders of bone density and structure, right thigh; Other specified disorders of bone density and structure, left thigh 05/03/2025 Ancillary Orders Virtual Department [address] [place] [address] Bigda, Emil A, DO Osteopenia of both hips (Primary Dx); Other specified disorders of bone density and structure, right thigh 05/03/2025 Transcribe Orders Virtual Department [address] [place] [phone] Bigda, Emil A, DO Osteopenia of both hips (Primary Dx) from Last 3 Months Immunizations Immunization Administration Dates Next Due COVID-19 (Pre-07/06) Pfizer Vaccine, mRNA, PF 06/11/2022,01/04/2022,07/09/2021,11/05,10/15/2020 Influenza High-Dose Trivalen t Preservative Free IM 06/10/2019,06/15/2018,05/28/2015 Influenza Quadrivalent w/ Pr eservative IM 07/09/2021,05/22/2020 Influenza Trivalent Adjuvant ed Preservative free IM 05/27/2017,06/18/2016 Pneumococcal conjugate PCV13 07/19/2018 Pneumococcal polysaccharide PPSV23 07/21/2019 Zoster recombinant 10/04/2019,07/21/2019 Social History Tobacco Use Types Packs/Day Years [...] Orientation Straight 10/20/2024 10 :32 PM EST Last Filed Vital Signs Vital Sign Reading [...] Mass Index 24.14 07/10/2025 9:58 PM EDT Plan of Treatment Health Maintenance Due Date Last Done Comments Adult Td,Tdap Booster 1945 DEPRESSION SCREENING 1957 RSV VACCINE (1 - 1-dose 75+ series) 02/25/2019 VALPROIC ACID (DEPAKENE) LEVEL 06/17/2019 06/17/2018, 09/02/2017 BLOOD PRESSURE 08/02/2023 01/30/2023 INFLUENZA VACCINE (#1) 2025 , 05/22/2020, 06/10/2019, Additional history exists COVID-19 VACCINE ( season) 2025 06/11/2022, 01/04/2022, 07/09/2021, Additional history exists OSTEOPOROSIS SCREENING INITIAL (ONE-TIME) Completed 12/28/2018 PNEUMOCOCCAL VACCINES (50+ years) Completed 07/21/2019, 07/19/2018 ZOSTER VACCINES Completed 10/04/2019, 07/21/2019 HEPATITIS A VACCINES Aged Out No long er eligible based on patient's age to complete this topic HIB VACCINES Aged Out No longer eligi ble based on patient's age to complete this topic MENINGOCOCCAL VACCINES (ACWY) Aged Out No longer eligible based on patient's age to complete this topic MENINGOCOCCAL VACCINES (B) Aged Out N o longer eligible based on patient's age to complete this topic Medical Devices Not on file Procedures Procedure Name Priority Date/Time Associated Diagnosis Comments MAGNESIUM STAT 07/10/2025 8:39 PM EDT BASIC METABOLIC PANEL STAT 07/10/2025 8:39 PM EDT CBC AND DIFFERENTIAL STAT 07/10/2025 8:39 PM EDT URINE SEDIMENT STAT 07/10/2025 7:30 PM EDT URINALYSIS W/REFLEX URINE CULTURE STAT 07/10/2025 7:30 PM EDT URINE CULTURE Routine 07/10/2025 7:30 PM EDT BD DXA AXIAL (SPINE) WITH HIP Routine 12/28/2018 9:00 AM EDT Encounter for screening for osteoporosis VALPROIC ACID STAT 06/17/2018 1:49 PM EDT from Last 3 Months or Most Recently Relevant to Health Maintenance Results * (ABNORMAL) CBC and differential (07/10/2025 8:39 PM EDT) WBC 8.07 4.00 - 11.00 K/uL [facility] RBC 4.04 4.00 - 5.20 M/uL [facility] HGB 12.0 12.0 - 16.0 g/dL [facility] HCT 37.0 36.0 - 46.0 % [facility] PLT 306 150 - 450 K/uL [facility] MCV 91.6 80.0 - 100.0 fL [facility] MCH 29.7 27.0 - 31.0 pg [facility] MCHC 32.4 32.0 - 36.0 g/dL [facility] RDW 12.7 11.5 - 14.5 % [facility] MPV 9.3 8.4 - 12.0 fL [facility] NRBC 0.00 0.00 /100 WBCs [facility] ABSOLUTE NRBC 0.00 0.00 K/uL [facility] DIFF METHOD Auto [facility] NEUTS 68.2 48.0 - 76.0 % [facility] LYMPHS 16.7(L) 18.0 - 41.0 % [facility] MONOS 12.8(H) 4.0 - 11.0 % [facility] EOS 0.2 0.0 - 5.0 % [facility] BASOS 0.5 0.0 - 1.5 % [facility] Granulocytes, immature (%) 1.6(H) 0.0 - 0.9 % [facility] ABSOLUTE NEUTS 5.50 1.92 - 7.60 K/uL [facility] ABSOLUTE LYMPHS 1.35 0.72 - 4.10 K/uL [facility] ABSOLUTE MONOS 1.03 0.16 - 1.10 K/uL [facility] ABSOLUTE EOS 0.02 0.00 - 0.50 K/uL [facility] ABSOLUTE BASOS 0.04 0.00 - 0.15 K/uL [facility] Granulocytes, immature 0.13(H) 0.00 - 0.09 K/uL [facility] Blood 07/10/2025 8:39 PM EDT 07/10/2025 8:44 PM EDT Richmond Correia PA-C LAB BLOOD ORDERABLES Final Res ult [address] [address] * Magnesium (07/10/2025 8:39 PM EDT) Pathologist [facility] MAGNESIUM 2.4 1.6 - 2.6 mg/dL [facility] Blood 07/10/2025 8:39 PM EDT 07/10/2025 8:44 PM EDT Richmond Correia PA-C LAB BLOOD ORDERABLES Final Res ult [address] [address] * (ABNORMAL) Basic metabolic panel (07/10/2025 8:39 PM EDT) SODIUM 133 133 - 146 mmol/L [facility] CHLORIDE 95(L) 96 - 108 mmol/L [facility] POTASSIUM 4.2 3.3 - 5.1 mmol/L [facility] CO2 25 21 - 35 mmol/L [facility] BUN 19 6 - 19 mg/dL [facility] CREATININE 0.90 0.5 - 1.5 mg/dL [facility] GLUCOSE 116(H) 70 - 99 mg/dL [facility] CALCIUM 9.2 8.4 - 10.3 mg/dL [facility] EGFR 64 >59 mL/min/1.7 3m2 [facility] Comment:Estimated glomerular filtration rate calculated using the CKD-EPI refit equation. ANION GAP 17 10 - 20 mmol/L [facility] Blood 07/10/2025 8:39 PM EDT 07/10/2025 8:44 PM EDT us Richmond Correia PA-C LAB BLOOD ORDERABLES Final Res ult Performing Organization Address [facility] de Phone Number [address] [address] * (ABNORMAL) Urinalysis w/reflex Urine Culture (07/10/2025 7:30 PM EDT) COLOR Yellow Yellow [facility] CLARITY CLOUDY [facility] GLUCOSE Negative Negative [facility] BILI Negative Negative [facility] KETONES Negative Negative [facility] SPECIFIC GRAVITY 1.015 1.005 - 1.030 [facility] BLOOD 1+(A) Negative [facility] PH 6.0 5.0 - 8.0 [facility] Protein-UA Negative Negative [facility] NITRITE Positive(A) Negative [facility] Leukocyte esterase, ur 1+(A) Negative [facility] Urine (Urine) 07/10/2025 7:3 0 PM EDT 07/10/2025 7:33 PM EDT us Shabana Lomeli MD URINE ORDERABLES Final Resul t Performing Organization Address [facility] Co de Phone Number [address] [address] * (ABNORMAL) Urine Culture (07/10/2025 7:30 PM EDT) Special Requests None Reflexed from [id number] 07/10/2025 7:50 PM EDT [facility] Urine Culture >100,000 colony forming units per mL ESCHERICHIA COLI(A) 07/11/2025 2:52 PM EDT [facility] Urine 07/10/2025 7:30 PM EDT 07/10/2025 [...] coli Cefazolin(urine) LANE METHOD <=1: Susceptible Comment: Shabana Lomeli MD MICROBIOLOGY - GENERAL ORDER LIAT Final Result [address] [address] * (ABNORMAL) Urine sediment (07/10/2025 7:30 PM EDT) WBC 50-100(A) NONE SEEN /hpf [facility] RBC 0-2(A) NONE SEEN /hpf [facility] URINE EPITHELIAL 0-4(A) NONE SEEN [facility] MUCUS Trace(A) NONE SEEN /hpf [facility] BACTERIA 3+(A) NONE SEEN /hpf [facility] 07/10/2025 7:30 PM EDT 07/10/2025 7:33 PM EDT Shabana Lomeli MD URINE ORDERABLES Final Resul t [facility] [address] [place] [address] * BD DXA AXIAL (SPINE) WITH HIP (12/28/2018 9:00 AM EDT) Anatomical Region Laterality Modality Bone Density Bone Density 12/28/2018 9:12 AM EDT Impressions 12/28/2018 9:14 AM EDT Osteopenia with interval decrease in bilateral hip bone mineral density since 2011. POS - [id number] Narrative 12/28/2018 9:14 AM EDT This is [...] classification of normal, without significant interval change [id number]. Total bone mineral density in the right hip was calculated at 0.832 gm/ny2fxej a T-score of -0.9 and Z-score of 0.9 falling within the WHOclassification of normal, representing an interval decline of 5.5% [id number]. Total bone mineral density in the left hip was calculated at 0.772gm/cm2 with a T-score of -1.4 and Z-score of 0.4 falling within the WHOclassification of osteopenia, representing an interval decline of 7.8%since 2011. IMPRESSION: Osteopenia with interval decrease in bilateral hip bone mineral densitysince 2011. POS - [id number] us Emil A Bigda DO IMG BD BONE DENSITY DEXA Final R esult * Valproic acid (06/17/2018 1:49 PM EDT) VALPROIC ACID 56.2 50.0 - 100.0 ug/mL [facility] Blood 06/17/2018 1:49 PM EDT 06/17/2018 2:20 PM EDT us Neel Esteves MD LAB BLOOD ORDERABLES Final Res ult [address] [address] from Last 3 Months or Most Recently Relevant to Health Maintenance Insurance [place]IC[place] PPO BLUE REPLACEMENT MEDICARE PART A & B MEDICARE PART A & B MEDICARE PPO BLUE REPLACEMENT MEDICARE PPO BLUE REPLAC[place] [id number] MEDICARE PART A & B MEDICARE PART A & B [place] RE[place]AC[place] MEDICARE PART A & B Care Teams Drivers' Cash Clerk Relationship Specialty Start Date End Date Emil Villalpando DO [address] [place] [address] [place] [address] PCP - General 06/29/17 Additional Source Comments The information contained in this document represents components of the legal health record. It is not the complete legal health record.[facility]
--- OUTSIDE RECORDS SUMMARY | 2025-07-14 13:22 | XMS_ITS | Encounter Summary ---
Author Organization [facility] Address [address] [place] [address] Phone Care Team Providers Care Tree Feller Name Role Phone Emil Villalpando DO Primary Care Provider [phone] Encounter Details Date Type Department Care Team (Latest Contact Info) Description 09/02/2017 Transcribe Orders [facility] [address] [place] [address] Junito Lee MD Special sensory attacks (Primary Dx) Social History Tobacco Use Types [...] documented as of this encounter Results * Valproic acid (09/02/2017 8:57 AM EST) VALPROIC ACID 59.8 50.0 - 100.0 ug/mL [facility] Blood 09/02/2017 8:57 AM EST 09/02/2017 9:17 AM EST us Junito Lee MD LAB BLOOD ORDERABLES Final R esult [facility] [address] [place] [address] * (ABNORMAL) Comprehensive metabolic panel (09/02/2017 8:57 AM EST) SODIUM 143 133 - 146 mmol/L [facility] POTASSIUM 5.5(H) 3.3 - 5.1 mmol/L [facility] CHLORIDE 104 96 - 108 mmol/L [facility] CO2 28 21 - 35 mmol/L [facility] BUN 18 6 - 19 mg/dL [facility] CREATININE 1.00 0.5 - 1.5 mg/dL [facility] GLUCOSE 91 70 - 99 mg/dL [facility] ALBUMIN 4.3 3.9 - 4.8 g/dL [facility] TOTAL PROTEIN 7.2 6.5 - 8.0 g/dL [facility] CALCIUM 9.5 8.4 - 10.3 mg/dL [facility] ALKALINE PHOSPHATASE 57 39 - 117 U/L [facility] TOTAL BILIRUBIN 0.2 0 - 1.2 mg/dL [facility] AST 15 0 - 37 U/L [facility] ALT 11 0 - 40 U/L [facility] GLOBULIN 2.9 1 - 4.8 g/dL [facility] EGFR 54 mL/min/1.7 3m2 [facility] Comment:Abnormal if <60. If patient is -Haitian, multiply the result by 1.21. ANION GAP 17 10 - 20 mmol/L [facility] Blood 09/02/2017 8:57 AM EST 09/02/2017 9:17 AM EST us Junito Lee MD LAB BLOOD ORDERABLES Final R esult [facility] [address] [place], [place] [id number] * (ABNORMAL) CBC and differential (09/02/2017 8:57 AM EST) WBC 7.00 3.40 - 11.20 K/uL [facility] RBC 4.89(H) 3.80 - 4.80 M/uL [facility] HGB 14.5 12.0 - 15.0 g/dL [facility] HCT 44.3 36.0 - 46.0 % [facility] PLT 295 130 - 400 K/uL [facility] MCV 90.6 79.0 - 98.0 fL [facility] MCH 29.7 27.0 - 34.8 pg [facility] MCHC 32.7 31.5 - 36.0 g/dL [facility] RDW 12.7 10.8 - 14.6 % [facility] MPV 10.5 9.4 - 12.4 fl [facility] NRBC 0.00 /100 WBCs [facility] ABSOLUTE NRBC 0.00 K/uL [facility] DIFF METHOD Auto [facility] NEUTS 62.0 45.30 - 77.70 % [facility] LYMPHS 28.6 12.30 - 39.70 % [facility] MONOS 7.3 4.10 - 12.80 % [facility] EOS 0.6 0 - 7.2 % [facility] BASOS 0.9 0 - 2.80 % [facility] Granulocytes, immature (%) 0.6 0.0 - 0.9 % [facility] ABSOLUTE NEUTS 4.35 1.40 - 7.70 K/uL [facility] ABSOLUTE LYMPHS 2.00 0.60 - 3.20 K/uL [facility] ABSOLUTE MONOS 0.51 0.11 - 0.59 K/uL [facility] ABSOLUTE EOS 0.04 0.01 - 0.50 K/uL [facility] ABSOLUTE BASOS 0.06 0.00 - 0.08 K/uL [facility] Granulocytes, immature 0.04 0.00 - 0.05 K/uL [facility] Blood 09/02/2017 8:57 AM EST 09/02/2017 9:17 AM EST us Junito Lee MD LAB BLOOD ORDERABLES Final R esult [facility] [address] [place] [address] documented in this encounter Visit Diagnoses Diagnosis Special sensory attacks- Primary Other convulsions documented in this encounter Additional Health Concerns Infection Onset Date Last Indicated Resolved Time CoV-Risk 10/20/2024 10/20/2024 10/31/2024 1:22 AM EST documented as of this encounter Care Teams Tree Feller Relationship Specialty Start Date End Date Emil Villalpando DO [address] [place] [address] [email or web address] PCP - General 06/29/17 documented as of this encounter Additional Source Comments The information contained in this document represents components of the legal health record. It is not the complete legal health record.[facility]
--- OUTSIDE RECORDS SUMMARY | 2025-07-14 13:22 | XMS_ITS | Encounter Summary ---
Author Organization [facility] Address [address] [facility] [address] [place] [address] Phone Care Team Providers Care Multi Slide Machine Tender Name Role Phone Emil Villalpando DO Primary Care Provider [phone] Encounter Details Date Type Department Care Team ([facility] st Contact Info) Description 05/03/2025 Ancillary Orders Virtual Department [address] [place] [address] Emil Villalpando DO [address] [facility] [place] [address] [place] [address] [email or web address] Osteopenia of both hips (Primary Dx); Other specified disorders of bone density and structure, right thigh; Other specified disorders of bone density and structure, left thigh Social History Tobacco Use Types Packs/Day [...] as of this encounter Plan of Treatment Scheduled Orders Name Type Priority Associated Diagnoses Orde r Schedule DXA Screening Imaging Routine Osteopenia of both hips Other specified disorders of bone density and structure, right thigh Other specified disorders of bone density and structure, left thigh Expected: 06/02/2025, Expires: 05/03/2026 documented as of this encounter Visit Diagnoses Diagnosis Osteopenia of both hips- Primary Other specified disorders of bone density and structure, right thigh Other specified disorders of bone density and structure, left thigh documented in this encounter Care Teams Multi Slide Machine Tender Relationship Specialty Start Date End Date Emil Villalpando DO [address] [place] [address] [email or web address] PCP - General 06/29/17 documented as of this encounter Additional Source Comments The information contained in this document represents components of the legal health record. It is not the complete legal health record.[facility]
--- OUTSIDE RECORDS SUMMARY | 2025-07-14 13:22 | XMS_ITS | Encounter Summary ---
Author Organization [facility] Address [address] [place] [address] Phone Care Team Providers Care Yeast Pusher Name Role Phone Emil Villalpando DO Primary Care Provider [phone] Encounter Details Date Type Department Care Team (Latest Contact Info) Description 12/22/2022 Transcribe Orders Virtual Department [address] [place] [address] Columba Moss PA [address] [facility] [place] [address] [place] [address] Right upper quadrant pain (Primary Dx) Social [...] documented as of this encounter Results * US ABDOMEN COMPLETE (ADULT) (01/09/2023 9:07 AM EDT) Anatomical Region Laterality Modality Abdomen Ultrasound 01/10/2023 1:39 PM EDT Impressions 01/10/2023 1:40 PM EDT Distended gallbladder without definite gallstones. Possible minimal intrahepatic biliary ductal dilatation. RECOMMENDATIONS: MRCP Narrative 01/10/2023 1:40 PM EDT US ABDOMEN COMPLETE (ADULT) TECHNIQUE: Abdominal Ultrasound Complete. COMPARISON: None FINDINGS: Liver: Normal. No focal lesions. Main Portal Vein: Patent with normal direction of flow. Gallbladder: Distended gallbladder. No gallstones or gallbladder wall thickening. [place]'s Sign: Negative. Biliary: Possible minimal intrahepatic biliary ductal dilatation. Common bile duct measures 9 mm. Pancreas: Incompletely visualized. Spleen: Normal. No splenomegaly. Kidneys: Normal. No stones or hydronephrosis. Aorta: Normal, where visualized sonographically. IVC: Normal intrahepatic segment. Procedure Note Enmanuel Hurley MD, ROSA - 01/10/2023 US ABDOMEN COMPLETE (ADULT) TECHNIQUE: Abdominal Ultrasound Complete. COMPARISON: None FINDINGS: Liver: Normal. No focal lesions. Main Portal Vein: Patent with normal direction of flow. Gallbladder: Distended gallbladder. No gallstones or gallbladder wallthickening. [place]'s Sign: Negative. Biliary: Possible minimal intrahepatic biliary ductal dilatation. Commonbile duct measures 9 mm. Pancreas: Incompletely visualized. Spleen: Normal. No splenomegaly. Kidneys: Normal. No stones or hydronephrosis. Aorta: Normal, where visualized sonographically. IVC: Normal intrahepatic segment. IMPRESSION: Distended gallbladder without definite gallstones. Possible minimalintrahepatic biliary ductal dilatation. RECOMMENDATIONS: MRCP us Columba PICKERING IMG US ABDOMEN Final Resul t documented in this encounter Visit Diagnoses Diagnosis Right upper quadrant pain- Primary Abdominal pain, right upper quadrant Right upper quadrant pain Abdominal pain, right upper quadrant documented in this encounter Additional Health Concerns Infection Onset Date Last Indicated Resolved Time CoV-Risk 10/20/2024 10/20/2024 10/31/2024 1:22 AM EST documented as of this encounter Care Teams Yeast Pusher Relationship Specialty Start Date End Date Emil Villalpando DO [address] [place] [address] PCP - General 06/29/17 documented as of this encounter Additional Source Comments The information contained in this document represents components of the legal health record. It is not the complete legal health record.[facility]
--- OUTSIDE RECORDS SUMMARY | 2025-07-14 13:22 | XMS_ITS | Encounter Summary ---
Author Organization [facility] Address [address] [place] [address] Phone Care Team Providers Care Management Advisor Name Role Phone Emil Villalpando Primary Care Provider [phone] Encounter Details Date Type Department Care Team (Late st Contact Info) Description 10/20/2024 Procedure Pass [facility], Ct Scan - [address] [address] Social History Tobacco Use Types Packs/Day Years [...] 10:29 PM EST Terrie Ha RN * Rush Suicide Severity Rating Scale (Screener/Recent Self-Report) Question [...] documented as of this encounter Care Teams Management Advisor Relationship Specialty Start Date End Date Emil Villalpando DO [address] [place] [address] [email or web address] PCP - General 06/29/17 documented as of this encounter Additional Source Comments The information contained in this document represents components of the legal health record. It is not the complete legal health record.[facility]
--- OUTSIDE RECORDS SUMMARY | 2025-07-14 13:23 | XMS_ITS | Encounter Summary ---
Author Organization [facility] Address [address] [place] [address] Phone Care Team Providers Care Skull Chopper Name Role Phone Emil Villalpando DO Primary Care Provider [phone] Encounter Details Date Type Department Care Team ([facility] st Contact Info) Description 05/02/2024 Transcribe Orders Virtual Department [address] [place] [address] Emil Villalpando DO [address] [facility] [place] [address] [place] [address] [email or web address] Pain in both knees, unspecified chronicity (Primary Dx) Social History Tobacco Use Types [...] as of this encounter Visit Diagnoses Diagnosis Pain in both knees, unspecified chronicity- Primary documented in this encounter Additional Health Concerns Infection Onset Date Last Indicated Resolved Time CoV-Risk 10/20/2024 10/20/2024 10/31/2024 1:22 AM EST documented as of this encounter Care Teams Skull Chopper Relationship Specialty Start Date End Date Emil Villalpando DO [address] [place] [address] [email or web address] PCP - General 06/29/17 documented as of this encounter Additional Source Comments The information contained in this document represents components of the legal health record. It is not the complete legal health record.[facility]
--- OUTSIDE RECORDS SUMMARY | 2025-07-14 13:23 | XMS_ITS | Encounter Summary ---
Author Organization [facility] Address [address] [place] [id number] Phone Care Team Providers Care Correction Worker Name Role Phone Emil Villalpando DO Primary Care Provider [phone] Encounter Details Date Type Department Care Team (Late st Contact Info) Description 11/22/2021 Procedure Pass [address] [address] Social History Tobacco Use Types Packs/Day Years [...] documented as of this encounter Care Teams Correction Worker Relationship Specialty Start Date End Date Emil Villalpando DO [address] [facility] [place] [address] [email or web address] PCP - General 06/29/17 documented as of this encounter Additional Source Comments The information contained in this document represents components of the legal health record. It is not the complete legal health record.[facility]
--- OUTSIDE RECORDS SUMMARY | 2025-07-14 13:23 | XMS_ITS | Encounter Summary ---
Author Organization [facility] Address [address] [place] [address] Phone Care Team Providers Care Revenue Stamp Clerk Name Role Phone Emil Villalpando DO Primary Care Provider [phone] Encounter Details Date Type Department Care Team ([facility] st Contact Info) Description 11/22/2021 Transcribe Orders Virtual Department [address] [place] [address] Emil Villalpando DO [address] [place] [address] [place] [address] [email or web address] Breast screening (Primary Dx) Social History Tobacco Use Types [...] documented as of this encounter Results * BI MAMMOGRAM SCREENING WITH TOMOSYNTHESIS WITH CAD (BILATERAL) (12/11/2021 9:38 AM EDT) Anatomical Region Laterality Modality Breast Left, Breast Right, Breast Bilateral Bila teral Mammography 12/11/2021 3:25 PM EDT Impressions 12/11/2021 3:27 PM EDT No mammographic evidence of malignancy. Recommend routine annual surveillance. BI-RADS CATEGORY: 1 - Negative. DENSITY: The breast tissue is heterogeneously dense, which could obscure a lesion on mammography. Narrative 12/11/2021 3:27 PM EDT 76-year-old female with no current breast symptoms. Comparison made to previous on 12/28/2018 and as far back as 04/27/2002. Interpretation made in conjunction with computer-aided detection and tomosynthesis. The breasts are heterogeneously dense, which may obscure small masses. There are no suspicious masses, areas of architectural distortion, or suspicious clusters of microcalcifications. Procedure Note Jesus Sotomayor MD - 12/11/2021 76-year-old female with no current breast symptoms. Comparison made toprevious on 12/28/2018 and as far back as 04/27/2002. Interpretation madein conjunction with computer-aided detection and tomosynthesis. The breasts are heterogeneously dense, which may obscure small masses. There are no suspicious masses, areas of architectural distortion, orsuspicious clusters of microcalcifications. IMPRESSION: No mammographic evidence of malignancy. Recommend routine annualsurveillance. BI-RADS CATEGORY: 1 - Negative. DENSITY: The breast tissue is heterogeneously dense, which could obscurea lesion on mammography. Emil Villalpando DO IMG MG EXAMS Final Result documented in this encounter Visit Diagnoses Diagnosis Breast screening- Primary Breast screening, unspecified Breast screening Breast screening, unspecified documented in this encounter Additional Health Concerns Infection Onset Date Last Indicated Resolved Time CoV-Risk 10/20/2024 10/20/2024 10/31/2024 1:22 AM EST documented as of this encounter Care Teams Revenue Stamp Clerk Relationship Specialty Start Date End Date Emil Villalpando DO [address] [place] [id number] PCP - General 06/29/17 documented as of this encounter Additional Source Comments The information contained in this document represents components of the legal health record. It is not the complete legal health record.[facility]
--- OUTSIDE RECORDS SUMMARY | 2025-07-14 13:23 | XMS_ITS | Data Portability ---
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 HIGH MUST MEET 2 OUT OF [...] Time Details Appointments FOLLOW UP 15 2024 02:15P M RAHEEL KELSEY Not available Not available Not available FOLLOW UP 15 2025 09:15A M DR ALMAZAN Not available Not available Not available Lab CBC 2024 025 [facility], [place], [address], 05/04/2025 12:15:18 CMP, serum or plasma 2024 025 [facility], [place], [address], 05/04/2025 12:15:18 TSH, serum or plasma 2024 025 [facility], [place], [address], 05/04/2025 12:15:18 valproic acid, free + total, serum 2024 025 [facility], [address] [place] [address], [address], 05/04/2025 12:15:18 valproic acid, free + total, serum 2024 025 [facility], [address] [place] [address], [address], 11/15/2024 12:47:53 valproic acid, free + total, serum 2024 025 [facility], [address] [place] [address], [address], 11/15/2024 12:47:53 vitamin D, 25-hydrox y, total, serum 2023 024 [facility], [place], [address], 05/02/2024 10:11:08 CBC 2023 024 [facility], [place], [address], 05/02/2024 10:11:08 CMP, serum or plasma 2023 024 [facility], [place], [address], 05/03/2024 11:18:39 lipid panel, blood 2023 024 [facility], [place], [address], 05/02/2024 10:11:08 Referral None recorded. Procedures None recorded. Surgeries None recorded. Imaging bone density 2024 025 [email or web address], [address] [place] [address], [address], 05/17/2025 09:15:29 XR, knee, 3 view - bilateral please 2023 [email or web address] [place] [address] Diagnostic Imaging, [address] [place] [address], [address], 05/17/2024 11:28:11 Medication Orders amlodipin e 10 mg tablet 2024 025 [id number], [address], [place], [id number], 05/16/2025 09:40:23 amlodipin e 5 mg tablet 2024 025 [id number], [address], [place], [phone], 05/16/2025 09:40:39 Patient TargetsNo targets recorded. Patient Instructions Encounter Date Encounter Id Patient Instructions Last Modified By Organization Details Last Modified Time 05/02/2024 [id number] learning about mood disorders Not available 05/02/2024 10:09:47 11/11/2024 [id number] learning about mood disorders Not available 11/11/2024 09:20:25 05/03/2025 [id number] leg and ankle edema: care instructions Not available 05/03/2025 09:19:02 Reason for Referral None Reported. Results Created Date Observation Date Name Description Value Unit Range Abnormal Flag Note LastModifiedBy Organization Detail LastModifiedTime 07/14/2007/14/2025 imagi ng/di agnos tic resul t No observ ation record ed. [facility] (Medical Records) [address] [place], [address], 07/14/2025 11:46:05 07/14/2007/14/2025 imagi ng/di agnos tic resul t No observ ation record ed. [facility] (Medical Records) [address] [place], [address], 07/14/2025 11:48:38 07/14/2007/14/2025 imagi ng/di agnos tic resul t No observ ation record ed. [facility] (Medical Records) [address] [place], [address], 07/14/2025 11:49:37 07/14/2007/14/2025 imagi ng/di agnos tic resul t No observ ation record ed. [facility] (Medical Records) [address] [place], [address], 07/14/2025 11:56:45 07/14/2007/14/2025 imagi ng/di agnos tic resul t No observ ation record ed. [facility] (Medical Records) [address] [place], [address], 07/14/2025 11:58:30 Result Notes None recorded. Problems Name Problem SNOMED Code Status Onset Date Resolution Date Notes Provider Name and Address Organization Details Recorded Time Hyperten sive disorder 72129044 Active 2017 Not Available [facility] 2 12:34:32 Seizure 28558245 Active 2017 Not Available [facility] 2 12:34:32 Gastric volvulus 17307246 Active 2017 Not Available [facility] 2 12:34:32 History of total hysterec dolly 503982382 Active 2017 Not Available [facility] 2 12:34:32 Low back pain 765170320 Active 2017 Not Available [facility] 2 12:34:31 Tobacco dependen ce syndrome 39258072 Active 2017 Not Available [facility] 2 12:34:32 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 Not Available [facility] 2 12:34:32 Depressi ve disorder 18812820 Active 2020 Not Available [facility] 2 12:34:32 Acute bronchit is 89794663 Active 2022 RAHEEL KELSEY [address] [place], [address], [facility] 3 11:09:11 Cough 17637589 Active 2022 RAHEEL KELSEY [address] [place], [address], [facility] 3 11:09:34 Fever with chills 255513045 Active 2022 RAHEEL KELSEY [address] [place], [address], [facility] 3 11:09:43 Right upper quadrant pain 731383515 Active 2022 RAHEEL KELSEY [address] [place], [address], [facility] 3 10:23:45 Cholelit hiasis without obstruct ion 45933429 Active 2022 RAHEEL KELSEY [address] [place], [address], [facility] 3 13:35:58 Spasm of muscle of lower back 58183222625 190669 Active 2022 Emil Almazan, DO [address] [place] [address], [address], [facility] 3 22:49:59 Degenera tion of lumbar interver tebral disc 87481805 Active 2022 RAHEEL KELSEY [address] [place] [address], [address], [facility] 3 09:00:50 Pain of bilatera l knee joints 38725097518 4104 Active 2023 Emil Almazan, DO [address] [place] [address], [address], [facility] 4 10:02:57 Osteopen ia 490958739 Active 2024 Emil Almazan, DO [address] [place] [address], [address], [facility] 5 09:15:03 Edema of lower extremit y 954699630 Active 2024 Emil Almazan, [address] [place] [address], [address], [facility] 5 09:18:34 Hyperten sive urgency 947474002 Active 2024 RAHEEL KELSEY [address] [place] [address], [address], [facility] 5 14:08:21 [facility] hyperten deni 54424041 Active 2024 RAHEEL KELSEY [address] [place] [address], [address], [facility] 5 09:39:42 Acute urinary tract infectio n 598307717 Active 2024 Emil Almazan, DO [address] [facility], [place], [address], [facility] 5 16:37:29 Problem Notes None recorded. Procedures Surgical History Date Name Laterality Status Provider Name and Address Organization Details Recorded Time 7 Colonoscopy completed Opal Chavez [facility] 01/12/2019 09:48:09 Imaging Results None recorded. Procedure Notes None recorded. Medical Equipment None Reported. Allergies Allergen ID Allergen Name Allergen Category Reaction Reaction Severity Criticality Documentation Date Start Date Code Code System Note Provider Name and Address Organization Details Recorded Time 2454 Substance with sulfonami de structure and antibacte rial mechanism of action (substanc e) medicatio n Not available Not available Not available 07/09/2018 02489 8003 SNOMED Opal Chavez [facility] 8 08:44:17 Medications Name Sig [...] Available fluorouraci l 5 % topical cream 05/09 completed Not Available Not Available Not Available Zithromax Z-Jono 250 mg tablet TAKE 2 TABLETS (500 MG) BY ORAL ROUTE ONCE DAILY FOR 1 DAY THEN 1 TABLET (250 MG) BY ORAL ROUTE ONCE DAILY FOR 4 DAYS 05/04 completed Not Available Not Available Not Available amlodipine 5 mg tablet TAKE 1 TABLET BY MOUTH EVERY DAY 05/16 completed Not Available Not Available Not Available tramadol 50 mg tablet TAKE 1 TO 2 TABLETS BY MOUTH EVERY 6 TO 8 HOURS NEEDED 2024 active Not Available Not Available Not Avai lable oxycodone-a cetaminophe n 5 mg-325 mg tablet Take 1 tablet every 6 hours by oral route as needed for 7 days. 07/20 completed Not Available Not Available Not Available amlodipine 10 mg tablet TAKE 1 TABLET BY MOUTH EVERY DAY active Not Available Not Available No t Available mupirocin 2 % topical ointment APPLY TOPICALLY TO THE CHEST DAILY UNTIL HEALED 05/09 completed Not Available Not Available Not Available [...] mg tablet,exte nded release 24 hr TAKE 2 TABLETS BY MOUTH TWICE DAILY active Not Available Not Available No t Available nitrofurant oin monohydrate /macrocryst als 100 mg capsule Take 1 capsule every 12 hours by oral route for 5 days. 06/28 completed Not Available Not Available Not Available Prevnar 13 (PF) 0.5 mL intramuscul ar syringe 01/12 completed Not Available Not Available Not Available Shingrix (PF) 50 mcg/0.5 mL intramuscul ar suspension, kit 11/19 completed Not Available Not Available Not Available Fluzone High-Dose 2018- (PF) 180 mcg/0.5 mL intramuscul ar syringe 11/19 completed Not Available Not Available Not Available Fluad Quad 0403-2432(6 5yr up)(PF) 60 mcg (15 mcg x 4)/0.5mL IM syringe 11/19 completed Not Available Not Available Not Available Vitals Date Recorded Body height Body mass index (BMI) Body weight Heart rate Oxygen saturation Oxygen saturation in Arterial blood by Pulse oximetry Systolic And Diastolic Provider Name and Address Organization Details Last Updated DateTime 5 163.83 cm 26 kg/m2 07925.2 2 g 71 /min 99 % 99 % 118/70 mm[Hg] Aashish Cook [facility] 5 09:04:15 Date Recorded Body height Body mass index (BMI) Body weight Heart rate Oxygen saturation Oxygen saturation in Arterial blood by Pulse oximetry Systolic And Diastolic Provider Name and Address Organization Details Last Updated DateTime 4 163.83 cm 24.1 kg/m2 86759.9 9 g 72 /min 98 % 98 % 140/80 mm[Hg] Aashish Cook [facility] 4 09:56:13 Date Recorded Body height Body mass index (BMI) Body weight Oxygen saturation Oxygen saturation in Arterial blood by Pulse oximetry Heart rate Systolic And Diastolic Provider Name and Address Organization Details Last Updated DateTime 5 163.83 cm 24.5 kg/m2 76174.1 8 g 98 % 98 % 66 /min 118/74 mm[Hg] Ankita Linton [facility] 5 09:04:02 Date Recorded Body height Body mass index (BMI) Body weight Heart rate Oxygen saturation Oxygen saturation in Arterial blood by Pulse oximetry Systolic And Diastolic Provider Name and Address Organization Details Last Updated DateTime 5 163.83 cm 23.6 kg/m2 05395.4 9 g 67 /min 94 % 94 % 214/94 mm[Hg] Taina Delgado [facility] 5 13:59:16 Date Recorded Body height Body mass index (BMI) Body weight Systolic And Diastolic Provider Name and Address Organization Details Last Updated DateTime 05/16/2025 163.83 cm 23.5 kg/m2 19281.34 g 150/80 mm[Hg] Ankita Royer [facility] 05/16/2025 09:31:37 Social History Question Answer Notes LastModified by Organizat ion Details LastModified Time Tobacco Smoking Status Former Smoker Not Available [facility] 07/17/2020 03:36:23 What Was The Date Of Your Most Recent Tobacco Screening? 05/16/2025 [email or web address] Information not available 05/16/2025 Sex: Unknown Functional Status Question Answer Note LastModified by Organization D etails LastModified Time Do you or have you ever used any other forms of tobacco or nicotine? No [email or web address] Information not available 12/22/2022 Mental Status None recorded. Family History Nothing Reported. Medical History No medical history recorded. Gynecological HistoryNo gynecological history recorded. Obstetrics History GPAL:G 0 P 0 0 0 0 Immunizations Vaccine Type Date Status Note Provider Nam e and Address Organization Details Recorded Time COVID-19, mRNA, LNP-S, PF, 30 mcg/0.3 mL dose 1 completed Not Available [facility] 07/03/2022 12:34:32 COVID-19, mRNA, LNP-S, PF, 30 mcg/0.3 mL dose 1 completed Not Available [facility] 07/03/2022 12:34:32 Influenza, split virus, quadrivalent, preservative 1 completed Not Available [facility] 07/03/2022 12:34:32 COVID-19, mRNA, LNP-S, PF, 30 mcg/0.3 mL dose 1 completed Not Available [facility] 07/03/2022 12:34:32 Influenza, split virus, quadrivalent, preservative 8 completed Not Available [facility] 07/03/2022 12:34:32 COVID-19, mRNA, LNP-S, PF, 30 mcg/0.3 mL dose 2 completed Not Available [facility] 07/03/2022 12:34:32 COVID-19, mRNA, LNP-S, PF, 30 mcg/0.3 mL dose 2 completed Not Available [facility] 07/03/2022 12:34:32 Pneumococcal conjugate PCV 13 8 completed Not Available [facility] 07/03/2022 12:34:32 Influenza, split virus, quadrivalent, preservative 9 completed Not Available [facility] 07/03/2022 12:34:32 zoster live 9 completed Not Available [facility] 07/03/2022 12:34:32 pneumococcal polysaccharide PPV23 9 completed Not Available [facility] 07/03/2022 12:34:32 zoster, unspecified formulation 0 completed Not Available [facility] 07/03/2022 12:34:32 Influenza, split virus, quadrivalent, preservative 0 completed Not Available [facility] 07/03/2022 12:34:32 Influenza, split virus, quadrivalent, preservative 0 completed Not Available [facility] 07/03/2022 12:34:32 Past Encounters Encounter ID Performer Location Encounter Start Date Encounter Closed Date Diagnosis/Indication Diagnosis SNOMED-CT Code Diagnosis ICD10 Code Diagnosis IMO Codes Diagnosis Note [id number] Emil Almazan DO [facility] [address] [place] [address] 07/09/2018 09:15:02 07/09/2018 10:00:21 Hypertensive disorder 84935443 I10 Seizure 00151895 R56.9 Adult [facility] examination 327044104 Z00.00 [id number] Emil Almazan DO [facility] [address] [place] [address] 01/12/2019 08:48:17 01/12/2019 09:20:36 Hypertensive disorder 70098418 I10 stable and is fairly good and her home bps are ok will need to check bps and call me if they are elevated to adjust med Seizure 59192353 R56.9 asymptomat ic over the last 6 mo Low back pain 244498128 M54.5 still a problem [id number] Emil Almazan [facility] [address] [facility],[place] [address] 07/13/2019 09:16:07 07/13/2019 10:27:16 Seizure 46991210 R56.9 asymptomat ic over the last 12 mo must get lab levels of drug Hypertensive disorder 38 009086 I10 stable and is fairly good and her home bps are ok will need to check bps and call me if they are elevated to adjust med [id number] Emil Almazan [facility] [address] [facility],[place] [address] 11/07/2019 14:20:40 11/07/2019 15:11:42 Cough 28595335 R05 pt has had cough for three days having difficulty sleeping due to coughing fits no other symptoms besides a mildly sore throat Hypertensive disorder 38 365042 I10 BP elevated today at 150/82 recheck at next appt Atypical pneumonia 73064 6009 J18.9 smoking history for 20 plus years, non-smoker for the last 30 years has had cough for three days advised to call back if symptoms worsen or if finished with abx and symptoms persist [id number] Emil Almazan [facility] [address] [facility],[place] [address] 05/04/2020 11:48:41 05/04/2020 13:28:42 Hypertensive disorder 03872724 I10 stable and is fairly good and her home bps are ok will need to check bps and call me if they are elevated to adjust med will chk fbw in jun Seizure 40774628 R56.9 asymptomat ic over the last 12 [place] [id number] Emil Rangel Almazan [facility] [address] [facility] [address],[place] [address] 11/19/2020 09:44:23 11/19/2020 11:55:03 Hypertensive disorder 00810624 I10 stable and is fairly good and her home bps are ok will need to check bps and call me if they are elevated to adjust med will need some lab Seizure 03970911 R56.9 asymptomat ic over the last 12 mo will chk lab Depressive disorder 3548 9007 F32.9 doing ok with sertraline Trigger fi nger of right hand 2838073478 3582887 M65.30 gettting much worse and is affecting her ADLs [id number] Emil Almazan [facility] [address] [facility],[place] [employer] [place] [address] 05/27/2021 09:54:06 05/28/2021 16:40:33 Seizure 73338365 R56.9 asymptomat ic over the last 12 molevel is good no chnage in med dose Hypertensive disorder 38 151827 I10 stable and is fairly good and her home bps are ok will need to check bps and call me if they are elevated to adjust medlab is reviewed [id number] Emil Almazan [facility] [address] [facility],[place] [employer] [place] [address] 11/22/2021 09:06:58 11/25/2021 15:12:47 Hypertensive disorder 46477525 I10 stable and is fairly good and her home bps are ok will need to check bps and call me if they are elevated to adjust medlab is reviewed Seizure 58336539 R56.9 asymptomat ic over the last 12 molevel is good no chnage in med dose Depressive disorder 3548 9007 F32.9 doing ok with sertraline Screening mammography 24 560160 Z12.31 [id number] Emil Almazan [facility] [address] [facility],[place] [address] 05/28/2022 09:06:35 05/28/2022 09:52:03 Hypertensive disorder 75055714 I10 stable and is fairly good and her home bps are ok will need to check bps and call me if they are elevated to adjust medlab is reviewed Depressive disorder 3548 9007 F32.9 doing ok with sertraline [id number] Emil Almazan [facility] [address] [facility] [address] 09/16/2022 09:38:56 09/16/2022 13:55:10 Acute bronchitis 60008423 J20.8 start on doxy for the next ten daysstart on medrol for fever, cough, chest tightness Cough 74547788 R05.1 can use PRN Fever with chills 818641 006 R50.81 use APAP and ibu interchang eably PRN for fever controlcon tinue to increase fluids [id number] Emil Almazan [facility] [address] [facility], [place] [address] 12/22/2022 09:56:29 12/22/2022 13:30:07 Seizure 37443848 R56.00 has fu with neuro tomorrow Right uppe r quadrant pain 701214195 R10.11 will set up for STAT Low back pain 125608245 M54.59 needs refill of medication [id number] Emil Almazan [facility] [address] [facility], [place] [address] 04/28/2023 15:13:29 04/28/2023 16:11:52 Hypertensive disorder 53796523 I10 stable and is fairly good and her home bps are ok will need to check bps and call me if they are elevated to adjust medlab is reviewed Low back pain 387352018 M54.59 using meloxicam had a recent bout of pain that was bad but most of the time the pain is intermitte ntuse the tramadol as needed Depressive disorder 1718 9007 F32.9 doing ok with sertraline [id number] Emil Almazan [facility] [address] [facility],[place] [address] 07/20/2023 10:11:52 07/20/2023 11:26:36 Low back pain 033714185 M54.59 needs refill of medication [id number] Emil Almazan [facility] [address] [facility],[place] [address] 11/09/2023 10:34:37 11/09/2023 15:56:33 Degeneration of lumbar intervertebral disc 75277796 M51.36 still bothers on occasion Hypertensive disorder 38 946366 I10 stable and is fairly good and her home bps are ok will need to check bps and call me if they are elevated to adjust medlab is reviewed Essential hypertension 55848757 I10 stable and doing well [id number] Emil Almazan [facility] [address] [facility],[place] [address] 05/02/2024 09:49:35 05/02/2024 10:24:32 Degeneration of lumbar intervertebral disc 80161782 M51.36 still bothers on occasion Essential hypertension 25121227 I10 stable and doing well Depressive disorder 3548 7357 F32.9 doing ok with sertraline Pain of bi lateral knee joints 8187599566 95429 M25.561 M25.562 [id number] Emil Almazan [facility] [address] [facility],[place] [address] 11/11/2024 08:44:02 11/11/2024 09:53:16 Cholelithiasis without obstruction 39333996 K80.20 seems that she had passed a stone given evidence of inflammati on and bile duct dilation currently and since has been asymptomat ic Depressive disorder 3542 9007 F32.9 doing ok with sertraline Essential hypertension 15212163 I10 stable and doing well Seizure 97103724 R56.00 given apparent episode we will chk a depak levellevel is good no change in med dose [id number] Emil Almazan [facility] [address] [facility],[place] [address] 05/03/2025 08:51:06 05/03/2025 09:38:28 Depression screening 549792392 Z13.31 neg Hypertensive disorder 38 809731 I10 stable and is fairly good and her home bps are ok will need to check bps and call me if they are elevated to adjust medlab is reviewed Seizure 95881562 R56.00 given apparent episode we will chk a depak levellevel is good no change in med dose Osteopenia 673790519 M85 .851 M85.852 13206025 Edema of l ower extremity 366973797 R60.0 77023 transitory now ok occured after a fall and irritation [id number] [facility] [address] [facility],[place] [address] 05/09/2025 13:51:12 05/09/2025 14:20:47 Depression screening 173652256 Z13.31 negative Hypertensive urgency 443 643353 I16.0 8758223 Hypertensive disorder 38 750182 I10 fu in a week [id number] Emil Multani Kwasi [facility] [address] [facility],[place] [address] 05/16/2025 09:25:40 05/16/2025 11:36:11 Hypertensive urgency 916409964 I16.0 0263265 much improved Essential hypertension 09015062 I10 67781 fu in a week Health Concerns Section Related Observation LastModified by Organization Detai ls LastModified Time None Recorded Concern Status LastModified by Organization Details LastModified Time None Recorded Advance Directives Directive None Recorded Payers Insurance Date Sequence Insurance Name Policy Number Policy Le Covered Member ID Le Member ID Guarantor Name 05/15/2025 1 [facility]: MEDICARE PPO BLUE (MEDICARE REPLACEMENT PPO) [id number] Maribel Quevedo [id number] Maribel Quevedo Notes Date Note Type Note Provider Name and Address Organization Details Recorded Time 4 text/htm l ROS as noted in the HPI doing well overall except noted onset of discomfort in both knees recentlyrelates has been walking dogs and notices the pain gets significantly worseno pain down calves etcstates otherwise is feeling good'low back is still intermittent in discomfort depends on what she had doneno cp no sobbowels and bladder oksleep is ok Emil Multani Kwasi, DO [address] [place], [address], [facility] 05/02/2024 10:11:11 5 text/htm l ROS as noted in the HPI relates had an episode of LOC while walking in the [facility] has had sz in past and this [...] showed GB ds and some inflammation Emil Multani BibicathyDO [address] [place] [address], [phone], [facility] Medicine 11/11/2024 09:21:39 5 text/htm l Care Management - HypertensionReported by PatientHPIFor self care, patient reportsnot under emotional stress. For severity, patient reportssymptoms are improvinganddoes not interfere with daily activities. For associated symptoms, patient reportsno dizziness,no lightheadedness,no chest pain,no shortness of breath,no palpitations,no edema,no calf muscle cramps,no blurred vision,no confusion,no headaches, andno fatigue.ROS as noted in the HPI doing well denies any major issuesrelates that she is active and no cp no sobwill be seeing neuro this weekno seizure activity Emil Multani BibicathyDO [address] [place], [address], [facility] Medicine 05/03/2025 09:26:32 5 text/htm l ROS as noted in the HPI c/o elevated BP the patient reports that she has been having some issues with her BPshe keeps getting high readings, had a very high reading the patient reports that she is having headachesdenies blurred vision, epitaxis, chest pain, sob, palpitations the patient overall feels good her BP last week was normal in office f/u with me next Thursdaywill keep getting readings for me for the next week depression screening: The patient denies little pleasure in activities they find enjoyable, feeling depressed, difficulties sleeping, feeling tired or having little energy, change in appetite, feeling guilty, overwhelmed or unmotivated. The patient denies suicidal ideation, thoughts of hurting themselves or others. Their mood is appropriate, they show good judgement and clear understanding of the conversation. They are orientated to time, place and person. They are not expressing any concerning thoughts or actions that would need further investigation and treatment for mental health. RAHEEL KELSEY [address] [place], [phone], [facility] 05/09/2025 14:20:22 5 text/htm l ROS as noted in the HPI f/u appt, 1 week recheck after initiation of new BP med 05/09/25 appt: the patient reports that she has been having some issues with her BPshe keeps getting high readings, had a very high reading the patient reports that she is having headachesdenies blurred vision, epitaxis, chest pain, sob, palpitations the patient overall feels good her BP last week was normal in office f/u with me next Thursdaywill keep getting readings for me for the next week depression screening: The patient denies little pleasure in activities they find enjoyable, feeling depressed, difficulties sleeping, feeling tired or having little energy, change in appetite, feeling guilty, overwhelmed or unmotivated. The patient denies suicidal ideation, thoughts of hurting themselves or others. Their mood is appropriate, they show good judgement and clear understanding of the conversation. They are orientated to time, place and person. They are not expressing any concerning thoughts or actions that would need further investigation and treatment for mental health. 05/16/25 appt: patient is here for recheck of the BPit has significantly improveddown from the the 214/94 to 150/80 which is a good consistent decreaseher headaches have resolved, no symptoms of dizziness or lightheadedness increase to 10 mg for further controlwill call with updated readings and/or side effects of too low BP RAHEEL KELSEY [address] [facility], [place], [address], [facility] 05/16/2025 09:46:57 OBGyn Episode No OBEpisode recorded.
[2025-07-14 13:36] LABS: Erythrocyte Sedimentation Rate 75 MM/HR (0-20)
[2025-07-14 13:37] VITALS: BP 134/56; PULSE 64; RESP 15; TEMP 36.6; O2SAT 97
[2025-07-14 14:00] LABS: Appearance Urine Clear; Glucose Urine UA Negative (Negative); PH 6.0 (5.0-9.0); Specific Gravity - Urine 1.020 (1.005-1.025); UMIC TRIGGER UACC YES
[2025-07-14 14:02] LABS: UACC Culture Trigger YES
[2025-07-14 14:31] VITALS: BP 156/69; PULSE 65; RESP 18; TEMP 36.6; O2SAT 100
[2025-07-14 14:40] VITALS: BP 156/69; PULSE 65; RESP 18; TEMP 36.6; O2SAT 100
== END 2025-07-14 14:41 | disposition home or self-care (01) ==
PROVIDERS: Physician Assistant Medical; Emergency Provider Emergency Medicine; PCP Internal Medicine
DX: R41.82 Altered mental status, unspecified (principal); R30.0 Dysuria; G40.909 Epilepsy, unspecified, not intractable, without status epilepticus; Z79.899 Other long term (current) drug therapy
CPT/HCPCS: 36415; 70450; 71046; 73110; 73130; 80053; 80164; 81001; 81003; 83735; 84145; 85025; 85652; 86140; 87086; 93005; 99285

== ENCOUNTER → 2025-07-14 11:00 | Outpatient (BNV) | payer MEDICARE, SELFPAY | PROVIDERS: Emergency Provider Emergency Medicine; PCP Internal Medicine; Visit Provider Radiology Diagnostic Radiology | DX: R41.0 Disorientation, unspecified (principal); M79.641 Pain in right hand; R22.31 Localized swelling, mass and lump, right upper limb; W19.XXXA Unspecified fall, initial encounter | CPT/HCPCS: 70450; 71046; 73110; 73130 ==

== ENCOUNTER → 2025-07-14 11:00 | Outpatient (BNV) | payer MEDICARE, SELFPAY | PROVIDERS: Emergency Provider Emergency Medicine; PCP Internal Medicine; Visit Provider Internal Medicine | DX: R41.0 Disorientation, unspecified (principal) | CPT/HCPCS: 93010 ==

== ENCOUNTER 2025-07-19 09:18 | Outpatient (REF) | payer MEDICARE, SELFPAY ==
--- OUTSIDE RECORDS SUMMARY | 2025-07-19 10:11 | XMS_ITS | Clinical Summary ---
Author Organization [facility] Address [address] [facility] [address] [place] [address] Phone Care Team Providers Care Commercial Pest Control Representative Name Role Phone Emil Villalpando DO Primary Care Provider [phone] Allergies Active Allergy Reactions Criticality Noted Date [...] days. 14 tablet 07/10/20 25 025 Active Problems Problem Noted Date Diagnosed Date Essential hypertension 11/09/2023 Seizure 07/09/2018 Encounters Date Type Department Care Team Description 07/18/2025 Telephone [facility] [address] [place] [address] Marshal Banks, First Visit New Patient 07/10/2025 8:04 PM EDT - 07/10/2025 10:02 PM EDT Emergency [facility] [address] [place] [address] Discharge Disposition: Home or Self Care 05/03/2025 Ancillary Orders Virtual Department [address] [place] [address] Emil Villalpando, DO Osteopenia of both hips (Primary Dx); Other specified disorders of bone density and structure, right thigh; Other specified disorders of bone density and structure, left thigh 05/03/2025 Ancillary Orders Virtual Department [address] [place] [address] Emil Villalpando, DO Osteopenia of both hips (Primary Dx); Other specified disorders of bone density and structure, right thigh 05/03/2025 Transcribe Orders Virtual Department [address] [place] [address] Emil Villalpando A, DO Osteopenia of both hips (Primary [...] 07/10/2025 9:58 PM EDT Plan of Treatment Upcoming Encounters Date Type Department Care Team (Late st Contact Info) Description 07/20/2025 10:30 AM EST Office Visit [address] [address] Marshal Banks DO [address] [place] [address] [email or web address] Health Maintenance Due Date Last Done Comments [...] 07/10/2025 8:39 PM EDT BASIC METABOLIC PANEL (BMP) STAT 07/10/2025 8:39 PM EDT CBC AND DIFFERENTIAL STAT 07/10/2025 8:39 PM EDT URINE SEDIMENT STAT 07/10/2025 7:30 PM EDT URINALYSIS WITH REFLEX TO URINE CULTURE STAT 07/10/2025 7:30 PM EDT [...] EDT) WBC 8.07 4.00 - 11.00 K/uL [facility] RBC 4.04 4.00 - 5.20 M/uL [facility] HGB 12.0 12.0 - 16.0 g/dL [facility] HCT 37.0 36.0 - 46.0 % [facility] PLT 306 150 - 450 K/uL [facility] MCV 91.6 80.0 - 100.0 fL [facility] MCH 29.7 27.0 - 31.0 pg [facility] MCHC 32.4 32.0 - 36.0 g/dL [facility] RDW 12.7 11.5 - 14.5 % [facility] MPV 9.3 8.4 - 12.0 fL [facility] NRBC 0.00 0.00 /100 WBCs [facility] ABSOLUTE NRBC 0.00 0.00 K/uL [facility] DIFF METHOD Auto [facility] NEUTS 68.2 48.0 - 76.0 % [facility] LYMPHS 16.7(L) 18.0 - 41.0 % [facility] MONOS 12.8(H) 4.0 - 11.0 % [facility] EOS 0.2 0.0 - 5.0 % [facility] BASOS 0.5 0.0 - 1.5 % [facility] Granulocytes, immature (%) 1.6(H) 0.0 - 0.9 % [facility] ABSOLUTE NEUTS 5.50 1.92 - 7.60 K/uL [facility] ABSOLUTE LYMPHS 1.35 0.72 - 4.10 K/uL [facility] ABSOLUTE MONOS 1.03 0.16 - 1.10 K/uL [facility] ABSOLUTE EOS 0.02 0.00 - 0.50 K/uL [facility] ABSOLUTE BASOS 0.04 0.00 - 0.15 K/uL [facility] Granulocytes, immature 0.13(H) 0.00 - 0.09 K/uL [facility] Blood 07/10/2025 8:39 PM EDT 07/10/2025 8:44 PM EDT us Richmond Correia PA-C LAB BLOOD BKR ORDERABLES Final Result [facility] [address] [place] [address] * Magnesium (07/10/2025 8:39 PM EDT) MAGNESIUM 2.4 1.6 - 2.6 mg/dL [facility] Blood 07/10/2025 8:39 PM EDT 07/10/2025 8:44 PM EDT Richmond Correia PA-C LAB BLOOD BKR ORDERABLES Final Result Performing Organization Address [facility]/ZIP Co de Phone Number [address] [address] * (ABNORMAL) Basic metabolic panel (07/10/2025 8:39 PM EDT) SODIUM 133 133 - 146 mmol/L [facility] CHLORIDE 95(L) 96 - 108 mmol/L [facility] POTASSIUM 4.2 3.3 - 5.1 mmol/L [facility] CO2 25 21 - 35 mmol/L [facility] BUN 19 6 - 19 mg/dL [facility] CREATININE 0.90 0.5 - 1.5 mg/dL [facility] GLUCOSE 116(H) 70 - 99 mg/dL [facility] CALCIUM 9.2 8.4 - 10.3 mg/dL [facility] EGFR 64 >59 mL/min/1.7 3m2 [facility] Comment:Estimated glomerular filtration rate calculated using the CKD-EPI refit equation. ANION GAP 17 10 - 20 mmol/L [facility] Blood 07/10/2025 8:39 PM EDT 07/10/2025 8:44 PM EDT Richmond Correia PA-C LAB BLOOD BKR ORDERABLES Final Result Performing Organization Address City/[facility]/ZIP Co de Phone Number [address] [address] * (ABNORMAL) Urinalysis w/reflex Urine Culture (07/10/2025 7:30 PM EDT) COLOR Yellow Yellow [facility] CLARITY CLOUDY [facility] GLUCOSE Negative Negative [facility] BILI Negative Negative [facility] KETONES Negative Negative [facility] SPECIFIC GRAVITY 1.015 1.005 - 1.030 [facility] BLOOD 1+(A) Negative [facility] PH 6.0 5.0 - 8.0 [facility] Protein-UA Negative Negative [facility] NITRITE Positive(A) Negative [facility] Leukocyte esterase, ur 1+(A) Negative [facility] Urine (Urine) 07/10/2025 7:3 0 PM EDT 07/10/2025 7:33 PM EDT us Shabana Lomeli MD LAB URINE ORDERABLES Final R esult Performing Organization Address [facility]/ZIP Co de Phone Number [address] [address] * (ABNORMAL) Urine Culture (07/10/2025 7:30 PM EDT) Special Requests None Reflexed from [id number] 07/10/2025 7:50 PM EDT [facility] Urine Culture >100,000 colony forming units per mL ESCHERICHIA COLI(A) 07/11/2025 2:52 PM EDT [facility] Urine 07/10/2025 7:30 PM EDT 07/10/2025 [...] <=1: Susceptible Comment: us Shabana Lomeli MD LAB MICROBIOLOGY CULTURE ORD ERABLES Final Result Performing Organization Address City/[facility]/ZIP Co de Phone Number [address] [address] * (ABNORMAL) Urine sediment (07/10/2025 7:30 PM EDT) WBC 50-100(A) NONE SEEN /hpf [facility] RBC 0-2(A) NONE SEEN /hpf [facility] URINE EPITHELIAL 0-4(A) NONE SEEN [facility] MUCUS Trace(A) NONE SEEN /hpf [facility] BACTERIA 3+(A) NONE SEEN /hpf [facility] 07/10/2025 7:30 PM EDT 07/10/2025 7:33 PM EDT us Shabana Lomeli MD LAB URINE ORDERABLES Final R esult [facility] [address] [place] [address] * BD DXA AXIAL (SPINE) WITH HIP (12/28/2018 9:00 AM EDT) Anatomical Region Laterality Modality Bone Density Bone Density 12/28/2018 9:12 AM EDT Impressions 12/28/2018 9:14 AM EDT Osteopenia with interval decrease in bilateral hip bone mineral density since 2011. POS - [id number] Narrative 12/28/2018 9:14 AM EDT This is [...] of normal, without significant interval change from 2012. Total bone mineral density in the right [...] classification of normal, without significant interval change [id number]. Total bone mineral density in the right hip was calculated at 0.832 gm/lx4pfal a T-score of -0.9 and Z-score of 0.9 falling within the WHOclassification of normal, representing an interval decline of 5.5% [id number]. Total bone mineral density in the left hip was calculated at 0.772gm/cm2 with a T-score of -1.4 and Z-score of 0.4 falling within the WHOclassification of osteopenia, representing an interval decline of 7.8%since 2011. IMPRESSION: Osteopenia with interval decrease in bilateral hip bone mineral densitysince 2011. POS - [id number] us Emil A Bigda DO IMG BD BONE DENSITY DEXA Final R esult * Valproic acid (06/17/2018 1:49 PM EDT) VALPROIC ACID 56.2 50.0 - 100.0 ug/mL [facility] Blood 06/17/2018 1:49 PM EDT 06/17/2018 2:20 PM EDT us Neel Esteves MD LAB BLOOD BKR ORDERABLES Final Result [address] [address] from Last 3 Months or Most Recently Relevant to Health Maintenance Insurance MEDICARE PART A & [place] [address] [place] [address] MEDICARE PPO BLUE REPLACEMENT MEDICARE PART A & B MEDICARE PART A & B MEDICARE PPO BLUE REPLACEMENT MEDICARE PART A & [place] [address] [place] [address] MEDICARE PPO BLUE REPLACEMENT MEDICARE PART A & B [facility] MEDICARE PPO BLUE REPLACEMENT MEDICARE PART A & B Care Teams Commercial Pest Control Representative Relationship Specialty Start Date End Date Emil Villalpando DO [address] [place] [id number] PCP - General 06/29/17 Additional Source Comments The information contained in this document represents components of the legal health record. It is not the complete legal health record.[facility]
--- OUTSIDE RECORDS SUMMARY | 2025-07-19 10:11 | XMS_ITS | Encounter Summary ---
Author Organization [facility] Address [address] [facility] [address] [place] [phone] Phone Care Team Providers Care Nuclear Plant Operator Name Role Phone Emil Villalpando Primary Care Provider [phone] Encounter Details Date Type Department Care Team (Late st Contact Info) Description 03/13/2023 Procedure [facility], Ct Scan - [address] [address] Social History Tobacco Use Types Packs/Day Years Used Date Smoking Tobacco: Former Cigarettes Smokeless Tobacco: Never Education Answer Date Recorded Are you interested in more education? Not on nsaim e 01/09/2023 Are you concerned about learning? [...] as of this encounter Plan of Treatment Upcoming Encounters Date Type Department Care Team (Late st Contact Info) Description 07/20/2025 10:30 AM EST Office Visit [address] [place] [address] Marshal Banks, DO [address] [place] [address] [email or web address] documented as of this encounter Visit Diagnoses Not on filedocumented in this encounter Additional Health Concerns Infection Onset Date Last Indicated Resolved Time CoV-Risk 10/20/2024 10/20/2024 10/31/2024 1:22 AM EST documented as of this encounter Care Teams Nuclear Plant Operator Relationship Specialty Start Date End Date Emil Villalpando DO [address] [place] [address] [email or web address] PCP - General 06/29/17 documented as of this encounter Additional Source Comments The information contained in this document represents components of the legal health record. It is not the complete legal health record.[facility]
--- OUTSIDE RECORDS SUMMARY | 2025-07-19 10:11 | XMS_ITS | Encounter Summary ---
Author Organization [facility] Address [address] [facility] [address] [place] [address] Phone Care Team Providers Care Skill Labor Name Role Phone Emil Villalpando DO Primary Care Provider [phone] Encounter Details Date Type Department Care Team (Late st Contact Info) Description 07/09/2018 Ancillary Orders Virtual Department [address] [place] [address] Emil Villalpando DO [address] [facility] [place] [address] [place] [address] [email or web address] Breast screening; Encounter for screening for osteoporosis [...] Description 07/20/2025 10:30 AM EST Office Visit [facility] [address] [place] [address] Marshal Banks DO [address] [place] [address] documented as of this encounter Results * BD DXA AXIAL (SPINE) WITH HIP (12/28/2018 9:00 AM EDT) Anatomical Region Laterality Modality Bone Density Bone Density 12/28/2018 9:12 AM EDT Impressions 12/28/2018 9:14 AM EDT Osteopenia with interval decrease in bilateral hip bone mineral density since 2011. POS - [id number] Narrative 12/28/2018 9:14 AM EDT This is [...] classification of normal, without significant interval change [id number]. Total bone mineral density in the right hip was calculated at 0.832 gm/hi1yfoe a T-score of -0.9 and Z-score of 0.9 falling within the WHOclassification of normal, representing an interval decline of 5.5% [id number]. Total bone mineral density in the left hip was calculated at 0.772gm/cm2 with a T-score of -1.4 and Z-score of 0.4 falling within the WHOclassification of osteopenia, representing an interval decline of 7.8%since 2011. IMPRESSION: Osteopenia with interval decrease in bilateral hip bone mineral densitysince 2011. POS - [id number] us Emil A Bigda DO IMG BD [...] Images interpreted in conjunction with [employer] computer-aided detection (CAD). FINDINGS: BREAST DENSITY: The breast parenchyma is heterogeneously dense, which may lower the sensitivity of mammography. There are no suspicious masses, suspicious areas of architectural distortion or suspicious clusters of microcalcifications. Procedure Note Patricia Moise MD - 12/28/2018 BI MAMMOGRAM SCREENING WITH TOMOSYNTHESIS WITH CAD (BILATERAL) HISTORY: Screening. COMPARISON: Prior studies dating back to 2006 most [id number]/03/2014. TECHNIQUE: Digital breast tomosynthesis was performed in [...] the sensitivity of mammography. POS - CDHMAMA Emil Villalpando DO IMG MG EXAMS Final Result documented in this encounter Visit Diagnoses Diagnosis Breast screening Breast screening, unspecified Encounter for screening for osteoporosis Breast screening Breast screening, unspecified Encounter for screening for osteoporosis documented in this encounter Additional Health Concerns Infection Onset Date Last Indicated Resolved Time CoV-Risk 10/20/2024 10/20/2024 10/31/2024 1:22 AM EST documented as of this encounter Care Teams Skill Labor Relationship Specialty Start Date End Date Emil Villalpando DO [address] [place] [id number] PCP - General 06/29/17 documented as of this encounter Additional Source Comments The information contained in this document represents components of the legal health record. It is not the complete legal health record.[facility]
--- OUTSIDE RECORDS SUMMARY | 2025-07-19 10:11 | XMS_ITS | Encounter Summary ---
Author Organization [facility] Address [address] [facility] [address] [place] [address] Phone Care Team Providers Care Summer Analyst Name Role Phone Emil Villalpando DO Primary Care Provider [phone] Encounter Details Date Type Department Care Team ([facility] st Contact Info) Description 05/03/2025 Transcribe Orders Virtual Department 30 [place] [address] Emil Villalpando DO [address] [facility] [place] [address] [place] [address] [email or web address] Osteopenia of both hips (Primary Dx) Social [...] Description 07/20/2025 10:30 AM EST Office Visit [facility] Medicine [address] [place] [address] Marshal Banks DO [address] [place] [address] [email or web address] documented as of this encounter Visit Diagnoses Diagnosis Osteopenia of both hips- Primary documented in this encounter Care Teams Summer Analyst Relationship Specialty Start Date End Date Emil Villalpando DO [address] [place] [address] PCP - General 06/29/17 documented as of this encounter Additional Source Comments The information contained in this document represents components of the legal health record. It is not the complete legal health record.[facility]
--- OUTSIDE RECORDS SUMMARY | 2025-07-19 10:11 | XMS_ITS | Encounter Summary ---
Author Organization [facility] Address [address] [facility] [address] [place] [address] Phone Care Team Providers Care Airplane Pilot Photogrammetry Name Role Phone Emil Villalpando DO Primary Care Provider [phone] Encounter Details Date Type Department Care Team (Late st Contact Info) Description 12/24/2018 Transcribe Orders Virtual Department 30 [place] [address] Emil Villalpando DO [address] [facility] [place] [address] Social History Tobacco Use Types Packs/Day Years [...] Description 07/20/2025 10:30 AM EST Office Visit [facility] [place] [facility] [address] [place] [address] Marshal Banks DO 22 [place] [address] documented as of this encounter Visit Diagnoses Not on filedocumented in this encounter Additional Health Concerns Infection Onset Date Last Indicated Resolved Time CoV-Risk 10/20/2024 10/20/2024 10/31/2024 1:22 AM EST documented as of this encounter Care Teams Airplane Pilot Photogrammetry Relationship Specialty Start Date End Date Emil Villalpando DO 179 [place] [address] [email or web address] PCP - General 06/29/17 documented as of this encounter Additional Source Comments The information contained in this document represents components of the legal health record. It is not the complete legal health record.[facility]
--- OUTSIDE RECORDS SUMMARY | 2025-07-19 10:11 | XMS_ITS | Encounter Summary ---
Author Organization [facility] Address [address] [facility] [address] [place] [address] Phone Care Team Providers Care Child Advocate Name Role Phone Emil Villalpando DO Primary Care Provider [phone] Encounter Details Date Type Department Care Team ([facility] st Contact Info) Description 05/03/2025 Ancillary Orders Virtual Department 30 [place] [address] Emil Villalpando DO [address] [place] [address] [place] [address] [email or web address] Osteopenia of both hips (Primary Dx); Other [...] Description 07/20/2025 10:30 AM EST Office Visit [address] [address] Marshal Banks DO [address] [place] [address] [email or web address] Scheduled Orders Name Type Priority Associated Diagnoses [...] thigh documented in this encounter Care Teams Child Advocate Relationship Specialty Start Date End Date Emil Villalpando DO 179 [place] [address] PCP - General 06/29/17 documented as of this encounter Additional Source Comments The information contained in this document represents components of the legal health record. It is not the complete legal health record.[facility]
--- OUTSIDE RECORDS SUMMARY | 2025-07-19 10:11 | XMS_ITS | Encounter Summary ---
Author Organization [facility] Address [address] [facility] [address] [place] [address] Phone Care Team Providers Care Sales Account Associate Name Role Phone Emil Villalpando DO Primary Care Provider [phone] Encounter Details Date Type Department Care Team (Late st Contact Info) Description 07/06/2018 Transcribe Orders [address] [id number] Emil Villalpando DO 179 [facility] [place] [address] Essential hypertension, malignant (Primary Dx); Pure hypercholesterolemia [...] 07/20/2025 10:30 AM EST Office Visit [facility] Medicine [address] [place] [address] Marshal Banks DO 22 [place] [address] documented as of this encounter Results * (ABNORMAL) Lipid panel (07/06/2018 7:39 AM EDT) HDL 67 mg/dL [facility] Comment: Interpretation: Risk Level Females Decreased >55mg/dL Average 50-55 mg/dL Increased <50 mg/dL CHOLESTEROL 231 0 - 240 mg/dL [facility] TRIGLYCERIDES 128 30 - 160 mg/dL [facility] LDL 138(H) 50 - 129 mg/dL [facility] Comment: LDL levels in terms of risk for coronary heart disease: <100 mg/dL: Optimal 100-129 mg/dL: Near or above optimal 130-159 mg/dL: Borderline high 160-189 mg/dL: High >190 mg/dL: Very High CARDIAC RISK RATIO 3.4 3.3 - 4.4 [facility] Blood 07/06/2018 7:3 9 AM EDT 07/06/2018 7:50 AM EDT us Emil Villalpando DO LAB BLOOD BKR ORDERABLES Final R esult [address] [address] * (ABNORMAL) Comprehensive metabolic panel (07/06/2018 7:39 AM EDT) SODIUM 141 133 - 146 mmol/L [facility] POTASSIUM 5.3(H) 3.3 - 5.1 mmol/L [facility] CHLORIDE 101 96 - 108 mmol/L [facility] CO2 28 21 - 35 mmol/L [facility] BUN 10 6 - 19 mg/dL [facility] CREATININE 1.00 0.5 - 1.5 mg/dL [facility] GLUCOSE 107(H) 70 - 99 mg/dL [facility] ALBUMIN 4.1 3.9 - 4.8 g/dL [facility] TOTAL PROTEIN 7.1 6.5 - 8.0 g/dL [facility] CALCIUM 9.5 8.4 - 10.3 mg/dL [facility] ALKALINE PHOSPHATASE 46 39 - 117 U/L [facility] TOTAL BILIRUBIN 0.3 0.0 - 1.2 mg/dL [facility] AST 21 0 - 37 U/L [facility] ALT 13 0 - 40 U/L [facility] GLOBULIN 3.0 1 - 4.8 g/dL [facility] EGFR 55(L) >59 mL/min/1.7 3m2 [facility] Comment:If patient is black, multiply result by 1.159. Estimated glomerular filtration rate calculated using the CKD-EPI equation. ANION GAP 17 10 - 20 mmol/L [facility] Blood 07/06/2018 7:39 AM EDT 07/06/2018 7:50 AM EDT us Emil Villalpando DO LAB BLOOD BKR ORDERABLES Final R esult [address] [address] documented in this encounter Visit Diagnoses Diagnosis Essential hypertension, malignant- Primary Pure hypercholesterolemia documented in this encounter Additional Health Concerns Infection Onset Date Last Indicated Resolved Time CoV-Risk 10/20/2024 10/20/2024 10/31/2024 1:22 AM EST documented as of this encounter Care Teams Sales Account Associate Relationship Specialty Start Date End Date Emil Villalpando DO 179 [place] [address] [email or web address] PCP - General 06/29/17 documented as of this encounter Additional Source Comments The information contained in this document represents components of the legal health record. It is not the complete legal health record.[facility]
--- OUTSIDE RECORDS SUMMARY | 2025-07-19 10:11 | XMS_ITS | Encounter Summary ---
Author Organization [facility] Address [address] [facility] [address] [place] [address] Phone Care Team Providers Care Top Frame Fitter Name Role Phone Emil Villalpando DO Primary Care Provider [phone] Encounter Details Date Type Department Care Team (Late st Contact Info) Description 06/17/2018 Procedure Pass [facility], Ct Scan - [address] [address] Social History Tobacco Use Types Packs/Day Years [...] Description 07/20/2025 10:30 AM EST Office Visit [facility] [address] [place] [address] Marshal Banks DO [address] [place] [address] [email or web address] documented as of this encounter Visit Diagnoses Not on filedocumented in this encounter Additional Health Concerns Infection Onset Date Last Indicated Resolved Time CoV-Risk 10/20/2024 10/20/2024 10/31/2024 1:22 AM EST documented as of this encounter Care Teams Top Frame Fitter Relationship Specialty Start Date End Date Emil VillalpandoDO 179 [place] [address] [email or web address] PCP - General 06/29/17 documented as of this encounter Additional Source Comments The information contained in this document represents components of the legal health record. It is not the complete legal health record.[facility]
--- OUTSIDE RECORDS SUMMARY | 2025-07-19 10:11 | XMS_ITS | Encounter Summary ---
Author Organization [facility] Address [address] [facility] [address] [place] [address] Phone Care Team Providers Care Treasury Agent Name Role Phone Emil Villalpando DO Primary Care Provider [phone] Encounter Details Date Type Department Care Team ([facility] st Contact Info) Description 05/03/2025 Ancillary Orders Virtual Department 30 [place] [address] Emil Villalpando DO [address] [facility] [place] [address] [email or web address] Osteopenia of both hips (Primary Dx); Other [...] Description 07/20/2025 10:30 AM EST Office Visit [address] [address] Marshal Banks DO [address] [place] [address] [email or web address] documented as of this encounter Visit Diagnoses Diagnosis Osteopenia of both hips- Primary Other specified disorders of bone density and structure, right thigh documented in this encounter Care Teams Treasury Agent Relationship Specialty Start Date End Date Emil Villalpando DO [address] [place] [address] [email or web address] PCP - General 06/29/17 documented as of this encounter Additional Source Comments The information contained in this document represents components of the legal health record. It is not the complete legal health record.[facility]
--- OUTSIDE RECORDS SUMMARY | 2025-07-19 10:12 | XMS_ITS | Encounter Summary ---
Author Organization [facility] Address [address] [facility] [address] [place] [address] Phone Care Team Providers Care Chocolate Production Machine Operator Name Role Phone Emil Villalpando DO Primary Care Provider Encounter Details Date Type Department Care Team (Late st Contact Info) Description 11/22/2021 Procedure Pass [facility], [address] [address] Social History Tobacco Use Types Packs/Day Years [...] Description 07/20/2025 10:30 AM EST Office Visit [facility] [address] [place] [address] Marshal Banks DO [address] [place] [address] [email or web address] documented as of this encounter Visit Diagnoses Not on filedocumented in this encounter Additional Health Concerns Infection Onset Date Last Indicated Resolved Time CoV-Risk 10/20/2024 10/20/2024 10/31/2024 1:22 AM EST documented as of this encounter Care Teams Chocolate Production Machine Operator Relationship Specialty Start Date End Date Emil VillalpandoDO 179 [place] [address] [email or web address] PCP - General 06/29/17 documented as of this encounter Additional Source Comments The information contained in this document represents components of the legal health record. It is not the complete legal health record.[facility]
--- OUTSIDE RECORDS SUMMARY | 2025-07-19 10:12 | XMS_ITS | Encounter Summary ---
Author Organization [facility] Address [address] [facility] [address] [place] [address] Phone Care Team Providers Care School Guidance Counselor Name Role Phone Emil Villalpando DO Primary Care Provider Encounter Details Date Type Department Care Team (Latest Contact Info) Description 12/22/2022 Transcribe Orders Virtual Department 30 [place] [address] Columba Moss PA [address] [facility] [place] [address] Right upper quadrant pain (Primary Dx) Social [...] Description 07/20/2025 10:30 AM EST Office [facility] [place] [facility] [address] [place] [address] Marshal Banks DO 22 [place] [address] [email or web address] documented as of this encounter Visit Diagnoses Diagnosis Right upper quadrant pain- Primary Abdominal pain, right upper quadrant documented in this encounter Additional Health Concerns Infection Onset Date Last Indicated Resolved Time CoV-Risk 10/20/2024 10/20/2024 10/31/2024 1:22 AM EST documented as of this encounter Care Teams School Guidance Counselor Relationship Specialty Start Date End Date Emil Villalpando DO [address] [place] [address] [email or web address] PCP - General 06/29/17 documented as of this encounter Additional Source Comments The information contained in this document represents components of the legal health record. It is not the complete legal health record.[facility]
--- OUTSIDE RECORDS SUMMARY | 2025-07-19 10:12 | XMS_ITS | Encounter Summary ---
Author Organization [facility] Address [address] [place] [address] Phone Care Team Providers Care Heat Treat Inspector Name Role Phone Emil Villalpando Primary Care Provider Encounter Details Date Type Department Care Team (Late st Contact Info) Description 10/20/2024 Procedure Pass [facility], Ct Scan - [address] [address] Social History Tobacco Use Types Packs/Day Years [...] 10:29 PM EST Terrie Ha RN * Randall Suicide Severity Rating Scale (Screener/Recent Self-Report) Question Answer Date of Assessment Author 1. Wish to be (Past 1 Month) No 10/20/2024 10:29 PM aSnam Farias RN 2. Non-Specific Active Suicidal Thoughts (Past 1 Month) No 10/20/2024 10:29 PM Sanam Farias RN 6. Suicidal Behavior (Lifetime) No 10/20/2024 10:29 PM Sanam Farias RN documented as of this encounter Plan of Treatment Upcoming Encounters Date Type Department Care Team (Late st Contact Info) Description 07/20/2025 10:30 AM EST Office Visit [address] [address] Marshal Banks DO [address] [place] [address] [email or web address] documented as of this encounter Visit Diagnoses Not on filedocumented in this encounter Additional Health Concerns Infection Onset Date Last Indicated Resolved Time CoV-Risk 10/20/2024 10/20/2024 10/31/2024 1:22 AM EST documented as of this encounter Care Teams Heat Treat Inspector Relationship Specialty Start Date End Date Emil Villalpando DO [address] [place] [address] PCP - General 10/16/17 documented as of this encounter Additional Source Comments The information contained in this document represents components of the legal health record. It is not the complete legal health record.[facility]
--- OUTSIDE RECORDS SUMMARY | 2025-07-19 10:12 | XMS_ITS | Encounter Summary ---
Author Organization [facility] Address [address] [facility] [address] [place] [address] Phone Care Team Providers Care Community Nutrition Educator Name Role Phone Emil Villalpando Primary Care Provider [phone] Reason for Visit * Reason Onset Date Comments First Visit New Patient 07/18/2025 Encounter Details Date Type Department Care Team (Late st Contact Info) Description 07/18/2025 Telephone [facility] Medicine 22 [place] [address] Marshal Banks DO 22 [place] [address] [email or web address] First Visit New Patient Social History Tobacco Use Types Packs/Day Years Used Date Smoking Tobacco: Former Cigarettes Q uit: 1975 Smokeless Tobacco: Never Alcohol Use Standard Drinks/Week [...] your housing situation today? I have cliff angelo 07/10/2025 How many times have you move [...] PM EST documented as of this encounter Progress Notes * Shea Mcrae - 07/18/2025 8:45 AM EST Left message for patient that they can schedule a NPV with Dr Banks, as he okay 'd it. documented in this encounter Plan of Treatment Upcoming Encounters Date Type Department Care Team (Late st Contact Info) Description 07/20/2025 10:30 AM EST Office Visit [address] [place] [address] Marshal Banks DO [address] [place] [email or web address] documented as of this encounter Visit Diagnoses Not on filedocumented in this encounter Care Teams Community Nutrition Educator Relationship Specialty Start Date End Date Emil Villalpando DO [address] [place] [address] [email or web address] PCP - General 06/29/17 documented as of this encounter Additional Source Comments The information contained in this document represents components of the legal health record. It is not the complete legal health record.[facility]
--- OUTSIDE RECORDS SUMMARY | 2025-07-19 10:12 | XMS_ITS | Encounter Summary ---
Author Organization [facility] Address [address] [place] [address] Phone Care Team Providers Care Agricultural Mechanic Name Role Phone Emil Villalpando Primary Care Provider [phone] Encounter Details Date Type Department Care Team (Late st Contact Info) Description 07/21/2023 Ancillary Orders [facility], X-Ray - [address] [address] Columba Moss PA 6 [facility] [place] [address] Pain Social History Tobacco Use Types Packs/Day [...] EST Office Visit [facility] [address] [place] [address] Marshal Banks DO [address] [place] [address] [email or web address] documented as of this encounter Results * [...] Degenerative changes. No acute osseous abnormality. Columba Dieter Tryba PA IMG XR SPINE Final Resul t documented in this encounter Visit Diagnoses Diagnosis Pain Generalized pain Pain Generalized pain documented in this encounter Additional Health Concerns Infection Onset Date Last Indicated Resolved Time CoV-Risk 10/20/2024 10/20/2024 10/31/2024 1:22 AM EST documented as of this encounter Care Teams Agricultural Mechanic Relationship Specialty Start Date End Date Emil Villalpando DO 179 [place] [address] [email or web address] PCP - General 06/29/17 documented as of this encounter Additional Source Comments The information contained in this document represents components of the legal health record. It is not the complete legal health record.[facility]
--- OUTSIDE RECORDS SUMMARY | 2025-07-19 10:12 | XMS_ITS | Encounter Summary ---
Author Organization [facility] Address [address] [place] [address] Phone Care Team Providers Care Lease Examiner Name Role Phone Emil Villalpando DO Primary Care Provider [phone] Encounter Details Date Type Department Care Team (Late st Contact Info) Description 11/22/2021 Transcribe Orders Virtual Department 30 [place] [address] Emil Villalpando DO 179 [facility] [place] [address] [email or web address] Breast screening (Primary Dx) Social History Tobacco [...] 07/20/2025 10:30 AM EST Office Visit [facility] 22 [place] [address] Marshal Banks DO 22 [place] [address] documented as of this encounter Results * [...] dense, which could obscurea lesion on mammography. us Emil A Bigda DO IMG MG EXAMS Final Result documented in this encounter Visit Diagnoses Diagnosis Breast screening- Primary Breast screening, unspecified Breast screening Breast screening, unspecified documented in this encounter Additional Health Concerns Infection Onset Date Last Indicated Resolved Time CoV-Risk 10/20/2024 10/20/2024 10/31/2024 1:22 AM EST documented as of this encounter Care Teams Lease Examiner Relationship Specialty Start Date End Date Bibicathy Emil Khalil DO 179 [place] [address] [email or web address] PCP - General 06/29/17 documented as of this encounter Additional Source Comments The information contained in this document represents components of the legal health record. It is not the complete legal health record.[facility]
--- OUTSIDE RECORDS SUMMARY | 2025-07-19 10:12 | XMS_ITS | Encounter Summary ---
Author Organization [facility] Address [address] [facility] [address] [place] [address] Phone Care Team Providers Care Violin Restorer Name Role Phone Emil Villalpando DO Primary Care Provider [phone] Encounter Details Date Type Department Care Team (Latest Contact Info) Description 12/22/2022 Transcribe Orders Virtual Department 30 [place] [address] Columba Moss PA 6 [facility] [place] [address] Right upper quadrant pain (Primary Dx) Social [...] Description 07/20/2025 10:30 AM EST Office Visit [facility] [address] [place] [address] Marshal Banks DO 22 [place] [address] [email or web address] documented as of this encounter Results * [...] Possible minimalintrahepatic biliary ductal dilatation. RECOMMENDATIONS: MRCP Columba PICKERING IMNeda US ABDOMEN Final Resul t documented in this encounter Visit Diagnoses Diagnosis Right upper quadrant pain- Primary Abdominal pain, right upper quadrant Right upper quadrant pain Abdominal pain, right upper quadrant documented in this encounter Additional Health Concerns Infection Onset Date Last Indicated Resolved Time CoV-Risk 10/20/2024 10/20/202410/3110/31/2024 1:22 AM EST documented as of this encounter Care Teams Violin Restorer Relationship Specialty Start Date End Date Emil Villalpando DO 179 [place] [address] [email or web address] PCP - General 06/29/17 documented as of this encounter Additional Source Comments The information contained in this document represents components of the legal health record. It is not the complete legal health record.[facility]
--- OUTSIDE RECORDS SUMMARY | 2025-07-19 10:12 | XMS_ITS | Encounter Summary ---
Author Organization [facility] Address [address] [place] [address] Phone Care Team Providers Care Tree Farmer Name Role Phone Emli Villalpando DO Primary Care Provider [phone] Encounter Details Date Type Department Care Team (Late st Contact Info) Description 05/02/2024 Transcribe Orders Virtual Department [address] [place] [address] Emil Villalpando DO [address] [place] [address] [email or web address] Pain in both knees, unspecified [...] Description 07/20/2025 10:30 AM EST [facility] [address] [address] [place] [address] Marshal Banks DO [address] [place] [phone] [email or web address] documented as of this encounter Visit Diagnoses Diagnosis Pain in both knees, unspecified chronicity- Primary documented in this encounter Additional Health Concerns Infection Onset Date Last Indicated Resolved Time CoV-Risk 10/20/2024 10/20/2024 10/31/2024 1:22 AM EST documented as of this encounter Care Teams Tree Farmer Relationship Specialty Start Date End Date Emil Villalpando DO [address] [place] [address] [place] [address] [email or web address] PCP - General 06/29/17 documented as of this encounter Additional Source Comments The information contained in this document represents components of the legal health record. It is not the complete legal health record.[facility]
--- OUTSIDE RECORDS SUMMARY | 2025-07-19 10:12 | XMS_ITS | Encounter Summary ---
Author Organization [facility] Address [address] [place] [address] Phone Care Team Providers Care Supervisor Diagnostic Name Role Phone Emil Villalpando Primary Care Provider [phone] Encounter Details Date Type Department Care Team (Late st Contact Info) Description 10/20/2024 Procedure Pass [facility], Ct Scan - [address] [address] Social History Tobacco Use Types Packs/Day Years [...] 10:29 PM EST Terrie Ha RN * Potter Suicide Severity Rating Scale (Screener/Recent Self-Report) Question [...] Description 07/20/2025 10:30 AM EST Office Visit [address] [address] Marshal Banks DO [address] [place] [email or web address] documented as of this encounter Visit Diagnoses Not on filedocumented in this encounter Additional Health Concerns Infection Onset Date Last Indicated Resolved Time CoV-Risk 10/20/2024 10/20/2024 10/31/2024 1:22 AM EST documented as of this encounter Care Teams Supervisor Diagnostic Relationship Specialty Start Date End Date Emil Villalpando DO [address] [place] [address] PCP - General 10/16/17 documented as of this encounter Additional Source Comments The information contained in this document represents components of the legal health record. It is not the complete legal health record.[facility]
--- OUTSIDE RECORDS SUMMARY | 2025-07-19 10:12 | XMS_ITS | Encounter Summary ---
Author Organization [facility] Address [address] [place] [address] Phone Care Team Providers Care Grapple Crew Leader Name Role Phone Emil Villalpando Primary Care Provider Encounter Details Date Type Department Care Team (Latest Contact Info) Description 09/02/2017 Transcribe Orders [address] [address] Junito Lee MD Special sensory attacks (Primary [...] Description 07/20/2025 10:30 AM EST Office Visit [address] [place] [address] Marshal Banks DO [address] [place] [address] [email or web address] documented as of this encounter Results * Valproic acid (09/02/2017 8:57 AM EST) VALPROIC ACID 59.8 50.0 - 100.0 ug/mL [facility] Blood 09/02/2017 8:57 AM EST 09/02/2017 9:17 AM EST Junito Lee MD LAB BLOOD BKR ORDERABLES Fin al Result [address] [address] * (ABNORMAL) Comprehensive metabolic panel (09/02/2017 8:57 AM EST) SODIUM 143 133 - 146 mmol/L [facility] POTASSIUM 5.5(H) 3.3 - 5.1 mmol/L [facility] CHLORIDE 104 96 - 108 mmol/L [facility] CO2 28 21 - 35 mmol/L [facility] BUN 18 6 - 19 mg/dL [facility] CREATININE 1.00 0.5 - 1.5 mg/dL [facility] GLUCOSE 91 70 - 99 mg/dL [facility] ALBUMIN 4.3 3.9 - 4.8 g/dL [facility] TOTAL PROTEIN 7.2 6.5 - 8.0 g/dL [facility] CALCIUM 9.5 8.4 - 10.3 mg/dL [facility] ALKALINE PHOSPHATASE 57 39 - 117 U/L [facility] TOTAL BILIRUBIN 0.2 0 - 1.2 mg/dL [facility] AST 15 0 - 37 U/L [facility] ALT 11 0 - 40 U/L [facility] GLOBULIN 2.9 1 - 4.8 g/dL [facility] EGFR 54 mL/min/1.7 3m2 [facility] Comment:Abnormal if <60. If patient is -[place], multiply the result by 1.21. ANION GAP 17 10 - 20 mmol/L [facility] Blood 09/02/2017 8:57 AM EST 09/02/2017 9:17 AM EST us Junito Lee MD LAB BLOOD BKR ORDERABLES Fin al Result Performing Organization Address City/[facility]/ZIP Co de Phone Number [address] [address] * (ABNORMAL) CBC and differential (09/02/2017 8:57 AM EST) WBC 7.00 3.40 - 11.20 K/uL [facility] RBC 4.89(H) 3.80 - 4.80 M/uL [facility] HGB 14.5 12.0 - 15.0 g/dL [facility] HCT 44.3 36.0 - 46.0 % [facility] PLT 295 130 - 400 K/uL [facility] MCV 90.6 79.0 - 98.0 fL [facility] MCH 29.7 27.0 - 34.8 pg [facility] MCHC 32.7 31.5 - 36.0 g/dL [facility] RDW 12.7 10.8 - 14.6 % [facility] MPV 10.5 9.4 - 12.4 fl [facility] NRBC 0.00 /100 WBCs [facility] ABSOLUTE NRBC 0.00 K/uL [facility] DIFF METHOD Auto [facility] NEUTS 62.0 45.30 - 77.70 % [facility] LYMPHS 28.6 12.30 - 39.70 % [facility] MONOS 7.3 4.10 - 12.80 % [facility] EOS 0.6 0 - 7.2 % [facility] BASOS 0.9 0 - 2.80 % [facility] Granulocytes, immature (%) 0.6 0.0 - 0.9 % [facility] ABSOLUTE NEUTS 4.35 1.40 - 7.70 K/uL [facility] ABSOLUTE LYMPHS 2.00 0.60 - 3.20 K/uL [facility] ABSOLUTE MONOS 0.51 0.11 - 0.59 K/uL [facility] ABSOLUTE EOS 0.04 0.01 - 0.50 K/uL [facility] ABSOLUTE BASOS 0.06 0.00 - 0.08 K/uL [facility] Granulocytes, immature 0.04 0.00 - 0.05 K/uL [facility] Blood 09/02/2017 8:57 AM EST 09/02/2017 9:17 AM EST us Junito Lee MD LAB BLOOD BKR ORDERABLES Fin al Result [facility] [address] [place] [address] documented in this encounter Visit Diagnoses Diagnosis Special sensory attacks- Primary Other convulsions documented in this encounter Additional Health Concerns Infection Onset Date Last Indicated Resolved Time CoV-Risk 10/20/2024 10/20/2024 10/31/2024 1:22 AM EST documented as of this encounter Care Teams Grapple Crew Leader Relationship Specialty Start Date End Date Emil Villalpando DO [address] [place] [address] [email or web address] PCP - General 06/29/17 documented as of this encounter Additional Source Comments The information contained in this document represents components of the legal health record. It is not the complete legal health record.[facility]
[2025-07-19 13:23] LABS: Appearance Urine Clear; Glucose Urine UA Negative (Negative); PH 6.5 (5.0-9.0); Specific Gravity - Urine 1.010 (1.005-1.025)
== END 2025-07-19 09:19 | disposition home or self-care (01) ==
LOC: HO.MANLDS 09:18
PROVIDERS: Visit Provider Physician Assistant
DX: N39.0 Urinary tract infection, site not specified (principal)
CPT/HCPCS: 81003